=== PATIENT | female | born 1970 | race Hispanic/Latino ===

== ENCOUNTER 2017-10-14 15:01 | Emergency (ER) | payer MEDICAID, SELFPAY ==
[2017-10-14 15:02] VITALS: BP 99/71; PULSE 101; RESP 16; TEMP 36.6; O2SAT 98; BMI 20.8
--- NOTE | 2017-10-14 16:12 | ED.DCSUM_ITS ---
- ER Visit Summary Date of Service: 10/14/17 Chief Complaint: right neck pain History of Present Illness: The patient is a 46 F who presents for right-sided neck pain since yesterday. Patient states she was sleeping and woke up with the pain. She denies any injury. It is on the right side of her neck and is gradually radiated down to the shoulder and pain in the back of her arm. She tried heat but did not take any osrj-onh-nmiknhr medications. She had similar symptoms as a child. She denies any fever, neck stiffness, or any other complaints. No weakness or paresthesias in the arms or legs. Physical Examination: Patient is awake and alert, well-nourished and well-developed sitting in bed, nontoxic appearing. Afebrile and hemodynamically stable. Examination of the neck shows full active range of motion. Pain with rotation of the neck to the right. Tenderness to palpation of the right paraspinal musculature along the trapezius. Also pain medial to the right mid scapula. Full active range of motion of the right upper extremity. Strength is 5/5 in all muscle groups of the right upper extremity. Sensation intact all dermatomes. Negative Spurling test. Test Results: [] Emergency Department Course and Treatment: Patient presents with a trapezius strain, likely that occurred due to a sleeping position. Patient is not having any radicular symptoms other than mild referred pain to the triceps region. She has no deficits in the right upper extremity. Patient was given naproxen for pain. She was given a prescription for the same. She is to use ice today to help with any swelling and inflammation and can switch to heat if it helps in 2 days. Patient agreed with this plan was discharged home. Treatment Plan: [] Disposition: [] Impression: right trapezius strain This note was generated with [employer] dictation software. It may contain incorrect words, spelling, and punctuation that were not noted in review of the chart prior to signing ED Disposition - Plan for ED Patient: Disposition: Home or Assisted Living Chief Complaint: Other, Pain/Inj Instructions: ED Neck Pain No Trauma Prescriptions: Naproxen [Naprosyn] 500 mg PO BID PRN #20 tab Referrals: Bianca Alvarado [Licensed Practical Nurse] - 1 Week if not improving Care Physician,No Primary [NON-STAFF] - Additional Instructions: Use naproxen for pain. Use ice for the next two days to help with irritation to the neck muscles. After two days, you may find some relief with hot packs. If you have any worsening of your condition or any new concerning symptoms, please return immediately to the emergency department for another evaluation.
[2017-10-14] MEDS: Naproxen 500 MG Tablet PO (16:38)
[2017-10-14 16:40] VITALS: BP 122/69; PULSE 75; RESP 16; O2SAT 99
== END 2017-10-14 16:40 | disposition home or self-care (01) ==
PROVIDERS: Emergency Provider Emergency Medicine; Family Provider Student in an Organized Health Care Education/Training Program; PCP Student in an Organized Health Care Education/Training Program
DX: S46.811A Strain of other muscles, fascia and tendons at shoulder and upper arm level, right arm, initial encounter (principal); X58.XXXA Exposure to other specified factors, initial encounter; Y93.84 Activity, sleeping; Y92.9 Unspecified place or not applicable; Y99.9 Unspecified external cause status; Z72.0 Tobacco use
CPT/HCPCS: 99283

== ENCOUNTER → 2019-04-07 | Outpatient (CLI) | payer MEDICAID, SELFPAY ==
--- NOTE | 2019-04-07 | LES_PTH ---
PATIENT: PADMAJA MORRISON LOC: [facility] U#:[id number] AGE/SX: 48/F ROOM: RE04/07/[address]: Dr. Kev Melvin MD : 1970 BED: DIS: 04/07/2019 SPEC #: [id number] RECD: 04/07/19 15:59 STATUS: MOO REReno #: [id number] MANNY: 04/07/19 00:[address]: Kev Melvin DEPT: SURGICAL PATHOLOGY RECD BY: Malik Lizama ENTERED: 04/10/19 09:18 SP TYPE: Lesion OTHR DR: Dr. Hank Alvarado, DO Tissues: Skin of face, NOS Procedures: Surgery Specimen Level III HEADER OPERATION: Excision of right cheek skin lesion PRE-OP DIAGNOSIS: Skin lesion of face TISSUE SUBMITTED: Right cheek lesion MICROSCOPIC DIAGNOSIS Right cheek lesion, excisional biopsy: Epidermal inclusion cyst. SJ:darleen 04/11/19 MICROSCOPIC DESCRIPTION Slides are reviewed. GROSS DESCRIPTION Received in fixative is one container labeled with the patient's name and designated right cheek. The specimen consists of an ellipse of light mejias excised skin with attached yellow-white fibrofatty tissue. The specimen measures 1.5 x 0.5 cm and a depth of excision measuring 0.7 cm. The specimen is inked and serially sectioned to reveal a 1 cm cyst containing cheesy white material. The specimen is sectioned and totally submitted in one cassette. / AM:darleen 04/10/19 TC:5 CPT: 77120
[2019-04-07 13:02] VITALS: BMI 20.8
== END | disposition home or self-care (01) ==
LOC: LABSPEC 16:12
PROVIDERS: PCP Student in an Organized Health Care Education/Training Program; Referring Provider Surgery; Visit Provider Surgery
DX: L98.9 Disorder of the skin and subcutaneous tissue, unspecified (principal)
CPT/HCPCS: 88304; 88305

== ENCOUNTER → 2019-05-11 08:43 | Outpatient (CLI) | payer MEDICAID, SELFPAY ==
[2019-04-07 13:02] VITALS: BMI 20.8
--- NOTE | 2019-05-11 08:45 | US_ITS ---
STUDY: SUPERFICIAL ULTRASOUND - LEFT BUTTOCK. REASON FOR EXAM: Female, 48 years old. BUTTOCK NODULE LEFT - NODULE RED/PURPLE TECHNIQUE: A superficial ultrasound was performed with real-time and static hoyos-scale imaging. COMPARISON: None. FINDINGS: The palpable abnormality corresponds to a 1.3 cm x 1.5 cm x 0.5 cm subcutaneous hypoechoic solid nodule with mild degree of blood flow. A biopsy is recommended for further evaluation. US/Other Unlisted US Procedure IMPRESSION: 1.3 cm x 1.5 cm x 0.5 sinus subcutaneous hypoechoic nodule with increased flow. A biopsy is recommended. Electronically Signed: Ramesh Callaway, at 9:20 EDT , Service support ,
== END ==
PROVIDERS: PCP Student in an Organized Health Care Education/Training Program; Referring Provider Surgery; Visit Provider Surgery
DX: R22.2 Localized swelling, mass and lump, trunk (principal)
CPT/HCPCS: 76882; 76999

== ENCOUNTER → 2019-05-16 | Outpatient (CLI) | payer MEDICAID, SELFPAY ==
[2019-05-16 14:04] VITALS: BMI 20.8
--- NOTE | 2019-05-16 14:40 | LES_PTH ---
PATIENT: PADMAJA MORRISON LOC: [facility] U#:[id number] AGE/SX: 48/F ROOM: RE05/16/[address]: Dr. Kev Melvin MD : 1970 BED: DIS: 05/16/2019 SPEC #: [id number] RECD: 05/16/19 16:12 STATUS: MOO RUBINA #: [id number] MANNY: 05/16/19 14:[address]: Kev Melvin DEPT: SURGICAL PATHOLOGY RECD BY: Malik Lizama ENTERED: 05/17/19 12:18 SP TYPE: Lesion OTHR DR: Dr. Hank Alvarado, DO Tissues: Skin of buttock, NOS Procedures: Surgery Specimen Level III HEADER OPERATION: Excision left buttock infected sebaceous cyst PRE-OP DIAGNOSIS: Infected sebaceous cyst left buttock TISSUE SUBMITTED: Left buttock MICROSCOPIC DIAGNOSIS Cyst of left buttock, excision: Epidermal inclusion cyst, ruptured and inflamed. See comment. AM:darleen 05/18/19 COMMENT The lesion appears to have been completely excised. Case has been reviewed in consultation with Dr. Antonio who concurs with the above diagnosis. IDC:AUSTIN MICROSCOPIC DESCRIPTION Slides are reviewed. GROSS DESCRIPTION Received in fixative is one container labeled with the patient's name and designated left buttock. The specimen consists of a mejias-white skin ellipse with underlying tissue measuring 2.5 x 1.5 cm and up to 1 cm in thickness. Sections reveal a cyst filled with blood measuring 0.5 cm in greatest dimension. The entire specimen is submitted in four cassettes. Cassette 1 contains the tips of skin ellipse. / AUSTIN:darleen 05/17/19 TC:2 CPT: 07034
== END | disposition home or self-care (01) ==
LOC: LABSPEC 16:27
PROVIDERS: PCP Student in an Organized Health Care Education/Training Program; Referring Provider Surgery; Visit Provider Surgery
DX: L72.0 Epidermal cyst (principal)
CPT/HCPCS: 88304; 88305

== ENCOUNTER 2019-08-10 13:19 | Emergency (ER) | payer MEDICAID, SELFPAY ==
[2019-05-16 14:04] VITALS: BMI 20.8
[2019-08-10 13:20] VITALS: BP 113/82; PULSE 104; RESP 16; TEMP 36.3; O2SAT 97; BMI 19.7
--- NOTE | 2019-08-10 14:12 | ED.DCSUM_ITS ---
- ER Visit Summary Date of Service: 08/10/19 Chief Complaint: Back pain History of Present Illness: The patient is a [address] Alvarado. She reports that just prior to coming emergency department she slipped and fell down 2 stairs. She reports she landed on her buttocks and has pain to her lower b ack. States is a sharp pain Zeta 10 at worst and 5-10 currently. Is worsened by nothing including movement or bending. Is also relieved by nothing, but she has not taken anything for pain. There is no radiation to her legs. No numbness or weakness. No problems with her bowels or her bladder. No groin numbness. Patient denies any other injuries. No blow to the head or loss of consciousness . She is not on anticoagulants. No shoulder, wrist, or hip pain. Physical Examination: Vitals: Stable. Afebrile. General: A&O x 3. NAD. Cardiovascular exam: Regular rate and rhythm, no murmur, rub or gallop. Respiratory exam: Clear to auscultation bilaterally. No wheezes or stridor. Abdominal exam: Soft, nontender, nondistended, normal bowel sounds. No peritoneal signs. Back: Diffuse moderate tenderness to palpation over the lumbar spine and the paraspinous musculature in the lumbar region. No point tenderness. Negative straight leg bilaterally. 5/5 DF, PF, EHL bilaterally. Normal sensation to light touch throughout. Extremity: No clubbing, cyanosis, or edema. Test Results: Patient refused x-rays. Emergency Department Course and Treatment: Patient was treated with naproxen. She is resting comfortably. Treatment Plan: Patient will be discharged with naproxen. Instructed to follow- up her primary care physician 1 week if not improving. Return to the emergency department for any worsening symptoms. Disposition: To home in improved and stable condition. Impression: 1. Fall. 2. Low back pain, acute. This note was generated with [employer] dictation software. It may contain incorrect words, spelling, and punctuation that were not noted in review of the chart prior to signing ED Disposition - Plan for ED Patient: Instructions: ED Back Pain Acute or Chronic Prescriptions: Naproxen [Naprosyn] 500 mg PO BID #14 tab Prescription Printed Referrals: Hank Alvarado DO [Primary Care Provider] - 1 Week if not improving
[2019-08-10] MEDS: Naproxen 250 MG Tablet 500 MG PO (14:28)
== END 2019-08-10 14:58 | disposition home or self-care (01) ==
LOC: ED 14:46
PROVIDERS: Emergency Provider Emergency Medicine; PCP Student in an Organized Health Care Education/Training Program
DX: M54.5 Low back pain (principal); W10.9XXA Fall (on) (from) unspecified stairs and steps, initial encounter; Z72.0 Tobacco use
CPT/HCPCS: 99281; 99282

== ENCOUNTER 2020-03-03 09:58 | Emergency (ER) | payer MEDICAID, SELFPAY ==
[2020-03-03 09:59] VITALS: BP 120/65; PULSE 91; RESP 16; TEMP 35.3; O2SAT 97; BMI 20.2
[2020-03-03 10:01] VITALS: BP 120/65; PULSE 91; RESP 16; TEMP 35.3; O2SAT 97
--- NOTE | 2020-03-03 10:18 | RAD_ITS ---
STUDY: X-RAY CHEST REASON FOR EXAM: Female, 49 years old. COUGH, GENERAL ILLNESS ACUTE ONSET TECHNIQUE: Single AP portable view of the chest. COMPARISON: 04/12/2010 FINDINGS: Some bilateral apical scarring. There is no demonstrated pleural abnormality. Normal size heart. Normal mediastinum and spring. Normal visualized pulmonary arteries. Normal visualized aortic arch and descending thoracic aorta. Normal visualized thoracic spine. Normal visualized ribs, clavicles, and shoulders. There is no demonstrated abnormality of the visualized soft tissue structures of the upper abdomen. RAD/Chest 1 View (Portable) IMPRESSION: No active disease. Electronically Signed: Jorge Palafox MD at 11:17 EST Tel , Service support ,
--- NOTE | 2020-03-03 10:19 | ED.DCSUM_ITS ---
- ER Visit Summary Date of Service: 03/03/20 Chief Complaint: Headache and body aches History of Present Illness: The patient is a 49 F who presents with headache and body aches that began today. Patient states her headache is over the frontal area. Patient describes it as a pressure. Patient has been taking ibuprofen and Tylenol with no improvement. Patient admits to arthralgias and has a history of rheumatoid arthritis. Patient states she has been having some swelling in her hands and elbows. Patient also admits to some nausea, vomiting, and diarrhea. Patient admits to chills but denies any fevers. Physical Examination: Vital signs are stable. Patient is afebrile. Patient is in no acute distress. Oral mucosa is pink and moist. Neck is supple. Trachea is midline. There is no JVD noted. Heart was regular rate and rhythm. Lungs are clear and equal bilaterally. Abdomen is soft. Bowel sounds are normal. There is no tenderness. There is no rebound or guarding noted. Skin is warm dry. Cranial nerves II through XII are intact. There are no focal motor or sensory deficits noted. Extremities are intact. There is no calf tenderness or edema. Test Results: Portable 1 view chest x-ray was obtained. On my interpretation, lung whitman are clear. There is normal cardiac silhouette. Bony thorax is normal. There is no acute process noted. Radiologist also interpreted the x- ray and agrees. CBC was essentially within normal limits. Comprehensive metabolic profile was normal. COVID-19 rapid antigen was negative. Influenza swab was negative. Emergency Department Course and Treatment: Patient was given a dose of Tylenol here. Patient was instructed to drink plenty of fluids. Patient was instructed to continue Tylenol and ibuprofen as needed for any fevers. Patient was instructed to follow-up with her primary care physician in 5 to 7 days. Patient understood and was agreeable with the plan. All questions were answered. Disposition: Discharge home Impression: 1. Viral syndrome This note was generated with [employer] dictation software. It may contain incorrect words, spelling, and punctuation that were not noted in review of the chart prior to signing ED Disposition - Plan for ED Patient: Disposition: Home or Assisted Living Diagnosis: Viral syndrome Instructions: ED Viral Syndrome (Adult) Referrals: Hank Alvarado, [Primary Care Provider] - 5-7 Days
[2020-03-03 10:45] LABS: Absolute Lymphocyte Count 1.76 X10^3/uL (0.83-4.51); Absolute Neutrophil Count 3.4 X10^3/uL (2.0-7.7); Basophil# 0.01 X10^3/uL; Basophil% 0.2 % (0-1); Eosinophil# 0.02 X10^3/uL; Eosinophils% 0.4 % (0-5); Hematocrit 36.6 % (37-47); Hemoglobin 11.5 g/dL (12.0-15.0); Lymphocyte # 1.76 X10^3/ul (4.0); Lymphocyte % 31.5 % (19-41); Mean Corp Hgb Conc 31.4 g/dL (32-36); Mean Corpuscular Hgb 30.7 pg (27.0-32.0); Mean Corpuscular Volume 97.6 fL (81-99); Mean Platelet Vol. 9.1 fl (6.2-12.0); Monocyte# 0.39 X10^3/uL; NRBC Flagged by Analyzer 0 % (0-5); Neutrophil # 3.39 X10^3/uL (2.7-7.7); Neutrophil % 60.7 % (47-70); Platelet Count 327 K/mm3 (150-450); RBC Distribution Width CV 13.5 % (11.6-14.6); RBC Distribution Width SD 48.6 fl (35.1-43.9); Red Blood Count 3.75 M/mm3 (4.2-5.4); White Blood Count 5.6 K/mm3 (4.4-11.0)
[2020-03-03 11:05] LABS: ALB/GLOB Ratio 1.2 RATIO (0.9-2.4); AST(SGOT) 12 U/L (15-37); Alanine Aminotransfer ALT/SGPT 25 U/L (13-56); Albumin, Serum 3.8 g/dL (3.2-5.0); Alkaline Phosphatase 89 U/L (45-117); Anion Gap 3 (5-15); BUN 13 mg/dL (7-18); BUN/Creat Ratio 22.3 RATIO (10-20); Calcium,Total 8.7 mg/dL (8.5-10.1); Chloride 108 mmol/L (98-107); Creatinine, Serum 0.58 mg/dL (0.55-1.02); EST Glomerular Filtration Rate 116 mL/min (>60); Est Glom Filt Rate - Afr Amer 140 mL/min (>60); Estimated Creatinine Clearance 99.82 ml/min; Globulin 3.3 g/dL (2.2-4.2); Glucose 94 mg/dL (74-106); Potassium 4.2 mmol/L (3.5-5.1); Protein, Total 7.1 g/dL (6.4-8.2); Sodium Level 140 mmol/L (136-145)
[2020-03-03] MEDS: Acetaminophen 500 MG Tablet 1000 MG PO (11:12)
[2020-03-03 11:13] VITALS: BP 113/69; PULSE 82; RESP 18; TEMP 35.3; O2SAT 97
== END 2020-03-03 11:54 | disposition home or self-care (01) ==
PROVIDERS: Emergency Provider Emergency Medicine; PCP Student in an Organized Health Care Education/Training Program
DX: B34.9 Viral infection, unspecified (principal); M06.9 Rheumatoid arthritis, unspecified; Z72.0 Tobacco use
CPT/HCPCS: 71045; 80053; 85025; 87426; 87804; 99285

== ENCOUNTER 2020-03-26 09:06 | Emergency (ER) | payer MEDICAID, SELFPAY ==
[2020-03-26 09:07] VITALS: BP 131/67; PULSE 90; RESP 18; TEMP 36.6; O2SAT 98; BMI 19.3
[2020-03-26 09:09] VITALS: BP 131/67; PULSE 90; RESP 18; TEMP 36.6; O2SAT 98
--- NOTE | 2020-03-26 09:33 | EKG12_ITS ---
Test Reason : Blood Pressure : / mmHG Vent. Rate : 086 BPM Atrial Rate : 086 BPM P-R Int : 134 ms QRS Dur : 074 ms QT Int : 394 ms P-R-T Axes : 100 066 092 degrees QTc Int : 471 ms Somatic/Motion Artifact Possible Sinus rhythm Abnormal ECG Confirmed by ROSALVA LEVINE, DANITA ([id number]), social media editor TERRIE YANEZ ([id number]) on 03/28/2020 10:27:15 AM Referred By: JENNIFER Confirmed By:DANITA BLACKWELL MD
--- NOTE | 2020-03-26 09:35 | ED.VISSUMM ---
- ER Visit Summary Date of Service: 03/26/20 Chief Complaint: [Dizziness] History of Present Illness: The patient is a 49 F [presents to the emergency department with complaint of dizziness that started 3 to 4 days ago. Patient states typically happens while she is at work working. She also complains of a sore throat and some left ear pain for the last couple days. She complains of an arthritis flare with some arthralgias but no myalgias. She denies any headaches. She denies fever. She denies cough. Patient does complain of some exertional dyspnea at times. She denies any chest pain. Patient is a smoker. Patient describes more of a lightheaded feeling rather than vertigo. Patient states that sometimes she kind of see stars in her eyes when she is feeling lightheaded and today actually had to hold onto something because she felt like she might fall. No syncopal episodes. She denies recent travel or surgery. Patient does have history of anxiety and depression and states that over the last 2 weeks has had 2 panic attacks. Patient denies any Covid exposures and states that the last time she was tested for Covid was about a month ago and was negative. She does have history of anemia. Patient denies blood in her stool or black tarry stools. She has had no vomiting or diarrhea.] Physical Examination: [HEENT-PERRLA, EOMI. Cranial nerves II through XII grossly intact. TMs clear. Mucous membranes moist. No adenopathy. Cardiovascular-regular rate and rhythm without murmur or ectopy Lungs-clear to auscultation, chest wall stable without crepitus or subcu emphysema Abdomen-normoactive bowel sounds, soft, nontender, no rebound or rigidity, no peritoneal signs. Neuro hqbw-kkhypr-vhpe and heel alfaro testing within normal limits, negative Romberg, negative pronator drift, fundi benign. Hallpike maneuver performed and there was no evidence of nystagmus and could not reproduce her dizziness. Extremities-intact ?4, normal range of motion, normal pulses, atraumatic] Test Results: [EKG obtained on arrival shows sinus rhythm with a ventricular rate of 86 bpm with some PACs. EKG had a poor baseline however. CBC with differential showing a 5.9, hemoglobin 11, hematocrit 35, placed 320. Chemistries unremarkable. Urinalysis normal. Troponin less than 0.015. D-dimer was normal at 0.29. COVID-19 testing rapid antigen test was negative. Chest x-ray showed some hyperinflation otherwise nothing acute. Orthostatic vital signs were obtained and were negative regarding heart rate or blood pressure but patient did feel somewhat lightheaded with standing.] Emergency Department Course and Treatment: [IV line established on arrival. Patient placed on quality assurance monitor chassis.] Patient received a liter normal same fluid bolus. Treatment Plan: [Patient will be advised to take the rest of the day off and drink lots of fluids and stay hydrated. Patient will be given a prescription for Antivert in case this is somewhat atypical vertigo. I do not feel any brain imaging is indicated as she has had no trauma recent illness or headache.] Disposition: [Discharged home in stable condition] Impression: [Dizziness-etiology uncertain] This note was generated with [employer] dictation software. It may contain incorrect words, spelling, and punctuation that were not noted in review of the chart prior to signing ED Disposition - Plan for ED Patient: Referrals: Hank Alvarado DO [Primary Care Provider] -
--- NOTE | 2020-03-26 09:43 | NURSING ---
NO OLD EKGS
[2020-03-26 09:58] LABS: Absolute Lymphocyte Count 1.52 X10^3/uL (0.83-4.51); Absolute Neutrophil Count 3.9 X10^3/uL (2.0-7.7); Basophil# 0.01 X10^3/uL; Basophil% 0.2 % (0-1); Eosinophil# 0.06 X10^3/uL; Hematocrit 34.9 % (37-47); Hemoglobin 11.3 g/dL (12.0-15.0); Lymphocyte # 1.52 X10^3/ul (4.0); Mean Corp Hgb Conc 32.4 g/dL (32-36); Mean Corpuscular Hgb 31.6 pg (27.0-32.0); Mean Corpuscular Volume 97.5 fL (81-99); Mean Platelet Vol. 9.1 fl (6.2-12.0); Monocyte# 0.39 X10^3/uL; Monocyte% 6.7 % (0-10); NRBC Flagged by Analyzer 0 % (0-5); Neutrophil # 3.85 X10^3/uL (2.7-7.7); Neutrophil % 65.8 % (47-70); Platelet Count 320 K/mm3 (150-450); RBC Distribution Width CV 13.5 % (11.6-14.6); RBC Distribution Width SD 48.7 fl (35.1-43.9); Red Blood Count 3.58 M/mm3 (4.2-5.4); White Blood Count 5.9 K/mm3 (4.4-11.0)
[2020-03-26 10:14] LABS: D-Dimer Quantitative (DVT/PE) 0.29 FEU/ug/m (0.27-0.49)
[2020-03-26 10:15] LABS: Anion Gap 5 (5-15); BUN 12 mg/dL (7-18); BUN/Creat Ratio 24.1 RATIO (10-20); Calcium,Total 9.3 mg/dL (8.5-10.1); Chloride 107 mmol/L (98-107); EST Glomerular Filtration Rate 139 mL/min (>60); Est Glom Filt Rate - Afr Amer 168 mL/min (>60); Estimated Creatinine Clearance 117.24 ml/min; Glucose 96 mg/dL (74-106); Potassium 4.1 mmol/L (3.5-5.1); Sodium Level 141 mmol/L (136-145)
--- NOTE | 2020-03-26 10:22 | RAD_ITS ---
STUDY: X-RAY CHEST REASON FOR EXAM: Female, 49 years old. Pt with dizziness,, sob, fatigue. States has been dizzy for several days now TECHNIQUE: Single AP portable view of the chest. COMPARISON: Comparison is made with prior study dated 03/03/2020. FINDINGS: Hyperinflation. Stable right apical scarring. There is no demonstrated pleural abnormality. Normal size heart. Normal mediastinum and spring. Normal visualized pulmonary arteries. Normal visualized aortic arch and descending thoracic aorta. Normal visualized thoracic spine. Normal visualized ribs, clavicles, and shoulders. There is no demonstrated abnormality of the visualized soft tissue structures of the upper abdomen. RAD/Chest 1 View (Portable) IMPRESSION: Hyperinflation. No acute abnormality is seen. Electronically Signed: Ramesh Callaway MD at 10:47 EST , Service support ,
[2020-03-26 10:25] LABS: Bacteria 0 SEEN /hpf (None Seen); Mucous, Urine 0 SEEN /hpf (<or=2+); Red Blood Cells-Urine 0 SEEN /hpf (0-5); Squamous Epithelial Cells - UA 0 SEEN /hpf (5-10)
[2020-03-26 10:32] LABS: Color, Urine Yellow (Yellow); Glucose, Dipstick Normal (Normal); Ketone-Dipstick Negative (Negative); Leukocyte Esterase-Dipstick 25 /ul (Negative); Nitrite-Dipstick Negative (Negative); Occult Blood-Urine Negative /ul (Negative); Protein-Dipstick Negative (Negative); Urine Bilirubin Dipstick Negative (Negative); Urine Clarity Clear (Clear); Urine Urobilinogen Normal (Normal)
[2020-03-26 10:47] LABS: White Blood Cells 0-5 SEEN /hpf (0-5)
[2020-03-26] MEDS: 0.9% Normal Saline 1,000 ML 150 ML IV (10:48)
[2020-03-26 10:55] VITALS: BP 101/65; BP 110/62; BP 94/69; PULSE 86; PULSE 94; PULSE 99; RESP 17; TEMP 36.4; O2SAT 97
[2020-03-26 11:06] VITALS: PULSE 88; RESP 17; O2SAT 97
--- NOTE | 2020-03-26 11:29 | ED.DEP ---
ED Disposition - Plan for ED Patient: Instructions: ED Dizziness, Uncertain Cause Referrals: Hank Alvarado DO [Primary Care Provider] - 3-5 Days
--- NOTE | 2020-03-26 11:30 | ED.DEP ---
ED Disposition - Plan for ED Patient: Instructions: ED Dizziness, Uncertain Cause Prescriptions: Meclizine HCl [Antivert] 25 mg PO 4X/DAY PRN PRN #14 tab PRN Reason: Dizziness Prescription Printed Referrals: Hank Alvarado DO [Primary Care Provider] - 3-5 Days
[2020-03-26 12:01] VITALS: BP 129/74; PULSE 81; RESP 18; O2SAT 99
--- NOTE | 2020-03-26 12:03 | ED.RN ---
THIS NURSE ENTERED THE ROOM WITH D/C INSTRUCTIONS. PT STATES IT'S ABOUT FUCKING TIME. THIS NURSE REVIEWED D/C INSTRUCTIONS WITH THE PT. PT SHOOK HER HEAD ABOUT INSTRUCTIONS. IV D/C. IV CATHETER INTACT. PT TOLERATED WELL. PT DENIES FURTHER NEEDS OR QUESTIONS AT THIS TIME
== END 2020-03-26 12:08 | disposition home or self-care (01) ==
PROVIDERS: Emergency Provider Emergency Medicine; PCP Student in an Organized Health Care Education/Training Program
DX: R42 Dizziness and giddiness (principal); F17.200 Nicotine dependence, unspecified, uncomplicated
CPT/HCPCS: 71045; 80048; 81001; 84484; 85025; 85379; 87426; 93005; 96360; 96361; 99285; J7030; A4216

== ENCOUNTER 2020-07-09 15:52 | Emergency (ER) | payer MEDICAID, SELFPAY ==
[2020-07-09 15:53] VITALS: BP 124/67; PULSE 97; RESP 16; TEMP 36.3; O2SAT 96; BMI 20.9
--- NOTE | 2020-07-09 16:07 | EDS_ITS ---
HPI History of Present Illness Chief Complaint: Cold Sx Informant: patient Narrative Narrative: 49-year-old female presents to the emergency department out of concern that she has Covid. She states that her body is aching. She states that her granddaughter whom she took out for ice cream and was with her the past 2 days tested positive. She states that the granddaughter is symptomatic. She denies any fever cough shortness of breath runny nose sore throat diarrhea headache or chills. PFSH PFSH Medical History (Updated 07/09/20 @ 16:[address] Vignesh Hamm DO) Anxiety Depression Infected sebaceous cyst of skin Skin lesion of face Allergy/AdvReac Type Severity Reaction Status Date / Time No Known Allergies Allergy Verified 07/09/20 15:53 Family History Mother Lung cancer Liver cancer Surgical History History of surgical removal of skin lesion Hx of hernia repair Hx of tubal ligation Social History (Updated 07/09/20 @ 16:[address] Vignesh Hamm DO) Smoking Status: Current every day smoker tobacco type: cigarettes substance use type: does not use ROS ROS ED Constitutional Constitutional ED: Denies chills or weight loss Eyes Eyes: Denies change in vision or diplopia ENT ENT ED: Denies ear pain, rhinorrhea or sore throat Cardiovascular Cardiovascular: Denies chest pain, orthopnea, palpitations or racing heartbeat Respiratory/Chest Respiratory/Chest: Denies cough, dyspnea or orthopnea Gastrointestinal Gastrointestinal: Denies abdominal pain, diarrhea, nausea or vomiting Genitourinary Genitourinary ED: Denies dysuria, hematuria or urinary frequency Musculoskeletal Musculoskeletal: Reports myalgias; Denies arthralgias Integumentary Denies abscess or rash Neurologic Neurologic: Denies headache(s) or weakness Psychiatric Psychiatric: Denies anxiety, depression, suicidal ideation or suicidal thoughts Endocrine Endocrinology: Denies polydipsia, polyphagia or polyuria Allergic/Immunologic Allergic/Immunologic ED: Denies mouth swelling, tongue swelling or urticaria EXAM Physical Exam Const Vital Signs: 07/09/20 15:53 07/09/20 16:00 Temperature 97.4 F L Temperature Source Temporal Pulse Rate 97 Respiratory Rate 16 Respiratory Effort Normal Respiratory Pattern Normal Blood Pressure 124/67 H Blood Pressure Mean 86 Pulse Ox 96 Oxygen Delivery Method Room Air Positive well nourished and well developed General Appearance ED: well developed HEENT Reports normocephalic, head/scalp atraumatic and moist mucous membranes Eyes PERRL and EOMs intact bilaterally Neck no lymphadenopathy, supple and no JVD Resp normal respiratory effort and clear to auscultation bilaterally Cardio regular rate, regular rhythm and no murmurs GI normal to inspection, nondistended, normoactive bowel sounds and non-tender Palpation: soft Back/Spine no CVA tenderness and normal ROM Extremity normal to inspection General Extremety ED: Negative for edema General Extremity: Negative for edema Neuro oriented x3 and CN's II-XII intact bilaterally Sensorium / Orientation: alert Motor Exam: strength 5/5 throughout Psych mental status grossly normal Mood & Affect: Negative for depressed or tearful Skin no rashes or lesions noted and no wounds MDM MDM MDM Narrative Medical decision making narrative: Patient's Covid test is negative. She was advised that she should still self quarantine as she may still develop symptoms/infection as the exposure was only yesterday.. Tylenol Motrin for pain. Discharge Plan Triage Chief Complaint: Cold Sx ED Provider: Vignesh Hamm Dx/Rx/DC Orders Clinical Impression: Close exposure to COVID-19 virus Instructions: Coronavirus Disease 2019 (COVID-19): Caring for Yourself or Oth ers Primary Care Provider: Hank Alvarado Referrals: Hank Alvarado DO [Primary Care Provider] - As Needed Activity Restrictions/Additional Instructions: As discussed a negative test today does not guarantee that you do not or will not develop to symptoms. You should self isolate and monitor yourself. Disposition Disposition: Home, self care
== END 2020-07-09 17:04 | disposition home or self-care (01) ==
PROVIDERS: Emergency Provider Emergency Medicine; PCP Student in an Organized Health Care Education/Training Program
DX: Z20.822 Contact with and (suspected) exposure to COVID-19 (principal); F17.210 Nicotine dependence, cigarettes, uncomplicated
CPT/HCPCS: 87426; 99282

== ENCOUNTER 2020-07-29 06:19 | Emergency (ER) | payer MEDICAID, SELFPAY ==
[2020-07-29 06:20] VITALS: BP 136/79; PULSE 118; RESP 20; TEMP 36.6; O2SAT 100; BMI 22.4
[2020-07-29 06:24] VITALS: BP 136/79; PULSE 118; RESP 20; TEMP 36.6; O2SAT 100
--- NOTE | 2020-07-29 06:31 | RAD_ITS ---
STUDY: X-RAY CHEST REASON FOR EXAM: Female, 49 years old. cough TECHNIQUE: Single AP portable view of the chest. COMPARISON: 03/26/2020. FINDINGS: There are fibrotic changes in the lung apices, right greater than left, along with mild emphysematous changes. There are no confluent pulmonary infiltrates. There is no demonstrated pleural abnormality. Normal size heart. Normal mediastinum and spirng. Normal visualized aortic arch and descending thoracic aorta. There are no demonstrated acute fractures or destructive bone lesions. There is no demonstrated abnormality of the visualized soft tissue structures of the upper abdomen. RAD/Chest 1 View (Portable) IMPRESSION: Chronic changes in the lung apices. No evidence for acute cardiopulmonary pathology. Electronically Signed: Max Sharma MD at 7:56 EDT , Service support ,
[2020-07-29] MEDS: 0.9% Normal Saline 1,000 ML 1000 ML IV (06:52)
[2020-07-29] MEDS: Morphine 2 MG/ML Syringe IV (06:52)
[2020-07-29] MEDS: Ketorolac 30 MG/ML Syringe IV (06:52)
[2020-07-29 06:53] VITALS: BP 136/79; PULSE 118; RESP 20; TEMP 36.6; O2SAT 100
[2020-07-29 06:56] LABS: Mucous, Urine 0 SEEN /hpf (<or=2+); Red Blood Cells-Urine 0 SEEN /hpf (0-5)
[2020-07-29 07:02] LABS: Absolute Neutrophil Count 7.5 X10^3/uL (2.0-7.7); Basophil# 0.02 X10^3/uL; Basophil% 0.2 % (0-1); Eosinophil# 0.06 X10^3/uL; Eosinophils% 0.6 % (0-5); Hemoglobin 11.9 g/dL (12.0-15.0); Lymphocyte % 11.7 % (19-41); Mean Corp Hgb Conc 32.2 g/dL (32-36); Mean Corpuscular Hgb 30.5 pg (27.0-32.0); Mean Corpuscular Volume 94.9 fL (81-99); Mean Platelet Vol. 9.2 fl (6.2-12.0); Monocyte# 0.69 X10^3/uL; Monocyte% 7.3 % (0-10); NRBC Flagged by Analyzer 0 % (0-5); Neutrophil # 7.49 X10^3/uL (2.7-7.7); Neutrophil % 79.8 % (47-70); Platelet Count 314 K/mm3 (150-450); RBC Distribution Width CV 13.4 % (11.6-14.6); RBC Distribution Width SD 47.1 fl (35.1-43.9); White Blood Count 9.4 K/mm3 (4.4-11.0)
[2020-07-29 07:14] LABS: Anion Gap 5 (5-15); BUN 12 mg/dL (7-18); BUN/Creat Ratio 16.3 RATIO (10-20); Calcium,Total 8.8 mg/dL (8.5-10.1); Chloride 105 mmol/L (98-107); Creatinine, Serum 0.74 mg/dL (0.55-1.02); EST Glomerular Filtration Rate 88 mL/min (>60); Est Glom Filt Rate - Afr Amer 107 mL/min (>60); Estimated Creatinine Clearance 87.46 ml/min; Glucose 114 mg/dL (74-106); Potassium 3.5 mmol/L (3.5-5.1); Sodium Level 138 mmol/L (136-145)
--- NOTE | 2020-07-29 07:51 | EX.ED.DYSGE1 ---
HPI History of Present Illness Chief Complaint: General Illness Detail of Chief Complaint: Body aches, subjective fever, nasal congestion, dysuria Informant: patient Onset/Context/Timing Onset: Days (2 days) Context: Gradual Onset Timing: Waxes and wanes Current Severity: Moderate Maximum Severity: Moderate Narrative Narrative: Patient presents secondary to body aches and subjective fevers for the past 2 days. She is had nasal congestion with cough along with runny nose. Last night she had developed some diarrhea as well. She does have dysuria and frequency. Patient has received the Covid vaccine. [facility] Medical History (Updated 07/29/20 @ 09:[address] Yoly Kerr MD) Anxiety Depression Infected sebaceous cyst of skin Skin lesion of face Home Medications sulfamethoxazole-trimethoprim [Bactrim DS] 1 tab PO BID #6 tab 07/29/20 [Rx Last Taken Unknown] Allergy/AdvReac Type Severity Reaction Status Date / Time No Known Allergies Allergy Verified 07/09/20 15:53 Family History Mother Lung cancer Liver cancer Surgical History History of surgical removal of skin lesion Hx of hernia repair Hx of tubal ligation Social History Smoking Status: Current every day smoker tobacco type: cigarettes substance use type: does not use ROS ROS ED Constitutional Constitutional ED: Reports fever(s) and subjective; Denies chills Eyes Eyes: Denies change in vision ENT ENT ED: Reports rhinorrhea; Denies sore throat Cardiovascular Cardiovascular: Denies chest pain Respiratory/Chest Respiratory/Chest: Reports cough; Denies dyspnea Gastrointestinal Gastrointestinal: Reports diarrhea; Denies abdominal pain, nausea or vomiting Genitourinary Genitourinary ED: Reports dysuria and urinary frequency Musculoskeletal Musculoskeletal: Reports myalgias; Denies back pain Integumentary Denies rash Neurologic Neurologic: Denies headache(s) or weakness Psychiatric Psychiatric: Denies anxiety or depression Endocrine Endocrinology: Denies polydipsia or polyuria Allergic/Immunologic Allergic/Immunologic ED: Denies urticaria EXAM Physical Exam Const Vital Signs: 07/29/20 06:20 07/29/20 06:24 07/29/20 06:53 Temperature 98 F 98 F 98 F Temperature Source Oral Oral Oral Pulse Rate 118 H 118 H 118 H Respiratory Rate 20 H 20 H 20 H Respiratory Effort Normal Blood Pressure 136/79 H 136/79 H 136/79 H Blood Pressure Mean 98 98 98 Pulse Ox 100 100 100 Oxygen Delivery Method Room Air Room Air Room Air Positive well nourished and well developed General Appearance ED: well developed HEENT Reports normocephalic and head/scalp atraumatic Eyes PERRL and EOMs intact bilaterally Neck supple Chest Wall inspection of chest normal and palpation of chest normal Resp normal respiratory effort and clear to auscultation bilaterally Cardio regular rate and regular rhythm GI normal to inspection, nondistended, normoactive bowel sounds Palpation: soft Back/Spine no CVA tenderness Extremity normal to inspection Neuro oriented x3 and no sensory deficits noted Sensorium / Orientation: alert Motor Exam: strength 5/5 throughout Psych mental status grossly normal Skin no rashes or lesions noted MDM MDM MDM Narrative Medical decision making narrative: Covid swab was obtained. Portable chest x-ray, labs, urinalysis are obtained. Patient was given Toradol along with 2 mg of morphine to help with body aches. Lab Data Attestation: I reviewed the patient's lab results. Labs: Laboratory Results - last 24 hr 07/29/20 07/29/20 07/29/20 06:45 06:45 08:55 WBC 9.4 RBC 3.90 L Hgb 11.9 L Hct 37.0 MCV 94.9 MCH 30.5 MCHC 32.2 RDW Std Deviation 47.1 H RDW Coeff of Melisa 13.4 Plt Count 314 MPV 9.2 Immature Gran % (Auto) 0.400 Neut % (Auto) 79.8 H Lymph % (Auto) 11.7 L [place] % (Auto) 7.3 Eos % (Auto) 0.6 Baso % (Auto) 0.2 Absolute Neuts (auto) 7.5 Absolute Lymphs (auto) 1.10 Nucleated RBC % 0 Sodium 138 Potassium 3.5 Chloride 105 Carbon Dioxide 28.0 Anion Gap 5 BUN 12 Creatinine 0.74 Estim Creat Clear Calc 87.46 Est GFR (MDRD) Af Amer 107 Est GFR (MDRD) Non-Af 88 BUN/Creatinine Ratio 16.3 Glucose 114 H Calcium 8.8 Urine Color Yellow Urine Clarity Clear Urine pH 6.0 Ur Specific [place] 1.010 Urine Protein Negative Urine Glucose (UA) Normal Urine Ketones Negative Urine Occult Blood Negative Urine Nitrite Negative Urine Bilirubin Negative Urine Urobilinogen Normal Ur Leukocyte Esterase 500 H Urine RBC 0 SEEN Urine WBC 25-50 SEEN Ur Squamous Epith Cells 0-5 SEEN Urine Bacteria 1+ Urine Mucus 0 SEEN Radiography Chest X-Ray - ED: 1 View, Read by ED Physician, Normal, Heart, Lungs and Mediastinum Diagnostic Testing: Radiology Impression Chest X-Ray 07/29/20 06:31 IMPRESSION: Chronic changes in the lung apices. No evidence for acute cardiopulmonary pathology. Electronically Signed: Max Sharma MD at 7:56 EDT , Service support , Treatment and Re-Evaluation Comments:: On repeat evaluation the patient is sleeping comfortably. She easily awakens. Test results discussed with her. She has evidence of a UTI in addition to a viral upper respiratory infection. She will be covered with 3 days of Bactrim. She will be given a work note for today. Discharge Plan Triage Chief Complaint: General Illness ED Provider: Yoly Kerr Dx/Rx/DC Orders Clinical Impression: Viral URI, UTI (urinary tract infection) Instructions: ED Bladder Infection, Female (Adult), ED URI, Viral, No Abx (Adult) Prescriptions: New sulfamethoxazole-trimethoprim [Bactrim DS] 800-160 mg tablet 1 tab PO BID Qty: 6 RF: 0 Stand Alone Forms: ED Work / School Excuse Primary Care Provider: Hank Alvarado Referrals: Hank Alvarado DO [Primary Care Provider] - 1 Week Disposition Disposition: Home, self care
[2020-07-29 09:03] LABS: Color, Urine Yellow (Yellow); Glucose, Dipstick Normal (Normal); Ketone-Dipstick Negative (Negative); Leukocyte Esterase-Dipstick 500 /ul (Negative); Nitrite-Dipstick Negative (Negative); Occult Blood-Urine Negative /ul (Negative); Protein-Dipstick Negative (Negative); Urine Bilirubin Dipstick Negative (Negative); Urine Clarity Clear (Clear); Urine Urobilinogen Normal (Normal)
[2020-07-29 09:10] LABS: Bacteria 1+ /hpf (None Seen); Squamous Epithelial Cells - UA 0-5 SEEN /hpf (5-10); White Blood Cells 25-50 SEEN /hpf (0-5)
[2020-07-29] MEDS: Smz/Tmp Ds Tablet 1 TABLET PO (09:31)
[2020-07-29 09:33] VITALS: BP 106/68; PULSE 89; RESP 18; O2SAT 97
== END 2020-07-29 09:36 | disposition home or self-care (01) ==
PROVIDERS: Emergency Provider Emergency Medicine; PCP Student in an Organized Health Care Education/Training Program
DX: J06.9 Acute upper respiratory infection, unspecified (principal); N39.0 Urinary tract infection, site not specified; Z20.822 Contact with and (suspected) exposure to COVID-19; R19.7 Diarrhea, unspecified; F17.210 Nicotine dependence, cigarettes, uncomplicated
CPT/HCPCS: 71045; 80048; 81001; 85025; 87426; 96361; 96374; 96375; 99284; J7030

== ENCOUNTER 2020-12-12 09:24 | Emergency (ER) | payer MEDICAID, SELFPAY ==
[2020-12-12 09:25] VITALS: BP 128/66; PULSE 88; RESP 24; TEMP 36; O2SAT 96; BMI 19.8
[2020-12-12 10:14] LABS: Absolute Lymphocyte Count 1.43 X10^3/uL (0.83-4.51); Absolute Neutrophil Count 3.3 X10^3/uL (2.0-7.7); Basophil# 0.01 X10^3/uL; Basophil% 0.2 % (0-1); Eosinophil# 0.08 X10^3/uL; Eosinophils% 1.5 % (0-5); Hematocrit 36.5 % (37-47); Lymphocyte # 1.43 X10^3/ul (0.83-4.51); Lymphocyte % 27.2 % (19-41); Mean Corp Hgb Conc 32.9 g/dL (32-36); Mean Corpuscular Hgb 30.8 pg (27.0-32.0); Mean Corpuscular Volume 93.8 fL (81-99); Mean Platelet Vol. 9.2 fl (6.2-12.0); Monocyte# 0.44 X10^3/uL; Monocyte% 8.4 % (0-10); NRBC Flagged by Analyzer 0 % (0-5); Neutrophil # 3.28 X10^3/uL (2.7-7.7); Neutrophil % 62.5 % (47-70); Platelet Count 313 K/mm3 (150-450); RBC Distribution Width CV 13.3 % (11.6-14.6); RBC Distribution Width SD 45.4 fl (35.1-43.9); Red Blood Count 3.89 M/mm3 (4.2-5.4); White Blood Count 5.3 K/mm3 (4.4-11.0)
[2020-12-12 10:25] VITALS: BP 107/66; PULSE 98; RESP 20; TEMP 36; O2SAT 96; O2SAT 98
[2020-12-12 10:31] LABS: ALB/GLOB Ratio 0.9 RATIO (0.9-2.4); AST(SGOT) 12 U/L (15-37); Alanine Aminotransfer ALT/SGPT 18 U/L (13-56); Albumin, Serum 3.7 g/dL (3.2-5.0); Alkaline Phosphatase 96 U/L (45-117); Anion Gap 8 (5-15); BUN 13 mg/dL (7-18); BUN/Creat Ratio 21.3 RATIO (10-20); Calcium,Total 8.9 mg/dL (8.5-10.1); Chloride 106 mmol/L (98-107); Creatinine, Serum 0.61 mg/dL (0.55-1.02); EST Glomerular Filtration Rate 109 mL/min (>60); Est Glom Filt Rate - Afr Amer 132 mL/min (>60); Estimated Creatinine Clearance 99.22 ml/min; Glucose 105 mg/dL (74-106); Potassium 3.9 mmol/L (3.5-5.1); Protein, Total 7.7 g/dL (6.4-8.2); Sodium Level 141 mmol/L (136-145)
--- NOTE | 2020-12-12 10:35 | RAD_ITS ---
STUDY: X-RAY CHEST REASON FOR EXAM: Female, 49 years old. Left-sided chest pain and shortness of breath. TECHNIQUE: Single AP portable view of the chest. COMPARISON: Comparison is made with prior study of 07/29/2020. FINDINGS: Stable fibrotic changes in the apices bilaterally more prominent on the right side. Hyperinflation. There is no demonstrated pleural abnormality. Normal size heart. Normal mediastinum and spring. Normal visualized pulmonary arteries. Normal visualized aortic arch and descending thoracic aorta. Normal visualized thoracic spine. Normal visualized ribs, clavicles, and shoulders. There is no demonstrated abnormality of the visualized soft tissue structures of the upper abdomen. RAD/Chest 1 View (Portable) IMPRESSION: Hyperinflation. Stable scarring at the lung apices more prominent at the right lung apex. Electronically Signed: Ramesh Callaway MD at 11:10 EDT , Service support ,
[2020-12-12 12:16] VITALS: PULSE 85; RESP 16
--- NOTE | 2020-12-12 12:52 | ED.VIS.DYS ---
HPI History of Present Illness Chief Complaint: Shortness of Breath Informant: patient Onset/Context/Timing Onset: Yesterday Context: gradual Timing: Continuous Quality: Positive for - (Sharp) Worsened by: other (Deep breathing) Relieved by: Rest Associated Symptoms rhinorrhea; Negative for cough, ear pain, fever, sore throat, chills, sweats, clear sputum, white sputum, yellow sputum or green sputum Chest Pain: Positive for Aching Narrative Narrative: Patient presents with shortness of breath and left-sided chest pain that began yesterday. Patient states he sneezed yesterday and felt some pain in her left chest. Patient describes the pain as aching. Patient states the pain is worse with deep breathing. Patient denies any cough. Patient denies any rhinorrhea. Patient denies any fevers or chills. Patient states her pain feels similar to prior episodes of pneumonia. Patient denies any COVID-19 exposures. [facility] Medical History (Updated 12/12/20 @ 12:[address] Riley Gann DO) Anxiety Depression Infected sebaceous cyst of skin Skin lesion of face Home Medications NK 12/12/20 [History Last Taken Unknown] Allergy/AdvReac Type Severity Reaction Status Date / Time No Known Allergies Allergy Verified 12/12/20 09:27 Family History Mother Lung cancer Liver cancer Surgical History History of surgical removal of skin lesion Hx of hernia repair Hx of tubal ligation Social History Smoking Status: Current every day smoker tobacco type: cigarettes substance use type: does not use ROS ROS ED Constitutional Constitutional ED: Denies chills or fever(s) Eyes Eyes: Denies blurry vision or change in vision ENT ENT ED: Reports rhinorrhea; Denies sore throat Cardiovascular Cardiovascular: Reports chest pain; Denies palpitations Respiratory/Chest Respiratory/Chest: Reports dyspnea; Denies cough Gastrointestinal Gastrointestinal: Denies nausea or vomiting Genitourinary Genitourinary ED: Denies dysuria or hematuria Musculoskeletal Musculoskeletal: Reports back pain; Denies neck pain Integumentary Denies abscess or rash Neurologic Neurologic: Denies headache(s) or weakness Allergic/Immunologic Allergic/Immunologic ED: Denies mouth swelling or urticaria EXAM Physical Exam Const Vital Signs: 12/12/20 09:25 12/12/20 10:25 12/12/20 12:16 Temperature 96.8 F L 96.8 F L Temperature Source Temporal Temporal Pulse Rate 88 98 85 Respiratory Rate 24 H 20 H 16 Respiratory Effort Normal Non-Labored Respiratory Depth Normal Respiratory Pattern Normal Blood Pressure 128/66 H 107/66 Blood Pressure Mean 86 79 Pulse Ox 96 96 Oxygen Delivery Method Room Air Room Air Positive well nourished and well developed General Appearance ED: well developed HEENT Reports moist mucous membranes Neck supple and no JVD Resp normal respiratory effort and clear to auscultation bilaterally Cardio regular rate, regular rhythm and no murmurs GI normal to inspection, nondistended, normoactive bowel sounds and non-tender Palpation: soft Extremity normal to inspection General Extremety ED: Negative for edema or tenderness General Extremity: Negative for edema Neuro oriented x3, CN's II-XII intact bilaterally and no sensory deficits noted Sensorium / Orientation: alert Motor Exam: strength 5/5 throughout Psych mental status grossly normal Skin no rashes or lesions noted MDM MDM MDM Narrative Medical decision making narrative: Portable 1 view chest x-ray was obtained. On my interpretation, lung [place] are clear. There is normal cardiac silhouette. Bony thorax is normal. There is no acute process noted. Radiologist also interpreted the x-ray and agrees. CBC and comprehensive metabolic profile were obtained and were within normal limits. Patient was feeling better on reevaluation. Patient was advised of her findings. Patient was instructed to take Tylenol as needed for pain. Patient was instructed to follow-up with her primary care physician in 5 to 7 days. Patient understood and was agreeable with the plan. All questions were answered. Lab Data Labs: Laboratory Results - last 24 hr 12/12/20 12/12/20 10:00 10:00 WBC 5.3 RBC 3.89 L Hgb 12.0 Hct 36.5 L MCV 93.8 MCH 30.8 MCHC 32.9 RDW Std Deviation 45.4 H RDW Coeff of Melisa 13.3 Plt Count 313 MPV 9.2 Immature Gran % (Auto) 0.200 Neut % (Auto) 62.5 Lymph % (Auto) 27.2 [place] % (Auto) 8.4 Eos % (Auto) 1.5 Baso % (Auto) 0.2 Absolute Neuts (auto) 3.3 Absolute Lymphs (auto) 1.43 Nucleated RBC % 0 Sodium 141 Potassium 3.9 Chloride 106 Carbon Dioxide 27.0 Anion Gap 8 BUN 13 Creatinine 0.61 Estim Creat Clear Calc 99.22 Est GFR (MDRD) Af Amer 132 Est GFR (MDRD) Non-Af 109 BUN/Creatinine Ratio 21.3 H Glucose 105 Calcium 8.9 Total Bilirubin 0.20 AST 12 L ALT 18 Alkaline Phosphatase 96 Total Protein 7.7 Albumin 3.7 Globulin 4.0 Albumin/Globulin Ratio 0.9 Radiography Diagnostic Testing: Clinical Impression(s) from Imaging Studies Chest X-Ray 12/12/20 10:35 IMPRESSION: Hyperinflation. Stable scarring at the lung apices more prominent at the right lung apex. Electronically Signed: Ramesh Callaway MD at 11:10 EDT , Service support , Discharge Plan Triage Chief Complaint: Shortness of Breath ED Provider: Riley Gann Dx/Rx/DC Orders Clinical Impression: Chest wall pain Instructions: ED Chest Wall Pain, Costochondritis Prescriptions: No Action NK RF: 0 Primary Care Provider: Hank Alvarado Referrals: Hank Alvarado DO [Primary Care Provider] - 5-7 Days Disposition Disposition: Home, Self Care
[2020-12-12 13:01] VITALS: BP 110/69; PULSE 73; RESP 16; O2SAT 98
== END 2020-12-12 13:02 | disposition home or self-care (01) ==
PROVIDERS: Emergency Provider Emergency Medicine; PCP Student in an Organized Health Care Education/Training Program
DX: R07.89 Other chest pain (principal); R06.02 Shortness of breath; F17.210 Nicotine dependence, cigarettes, uncomplicated
CPT/HCPCS: 71045; 80053; 85025; 87426; 99283; A4216

== ENCOUNTER 2020-12-17 06:57 | Emergency (ER) | payer MEDICAID, SELFPAY ==
[2020-12-17 06:58] VITALS: BP 118/73; PULSE 89; RESP 16; TEMP 36.4; O2SAT 98; BMI 19.8
--- NOTE | 2020-12-17 07:15 | EDS_ITS ---
HPI History of Present Illness Chief Complaint: Back Detail of Chief Complaint: Back pain that initially started yesterday Informant: patient Narrative Narrative: Patient presents to the emergency department complaint of back pain that started yesterday. Patient states initially she woke up yesterday morning and had some discomfort in her upper back and also noticed a little bit of a lump in her lower back with sharp stabbing pain in her lower back. The pain did not radiate down her legs. She denies change in bowel or bladder function. She denies weakness in extremities. Patient states she woke up this morning and did not have any further upper back pain but now continues to have the lower back pain. She denies any trauma. She denies recent illness. Patient states that she has been diagnosed with arthritis. Patient denies urinary symptoms. She denies fevers. Prior similar symptoms: No PFSH PFSH Medical History (Updated 12/17/20 @ 09:[address] Vasu Hudson DO) Anxiety Depression Infected sebaceous cyst of skin Skin lesion of face Home Medications hydrocodone-acetaminophen 1 tab PO Q4H PRN PRN 2 Days #10 tablet 12/17/20 [Rx Last Taken Unknown] Allergy/AdvReac Type Severity Reaction Status Date / Time No Known Allergies Allergy Verified 12/17/20 06:59 Family History Mother Lung cancer Liver cancer Surgical History History of surgical removal of skin lesion Hx of hernia repair Hx of tubal ligation Social History Smoking Status: Current every day smoker tobacco type: cigarettes substance use type: does not use ROS ROS ED Constitutional Constitutional ED: Reports systems reviewed and no addt'l complaints, except as documented; Denies body ache(s), change in weight or chills Eyes Eyes: Denies acute decrease in peripheral vision, change in vision, double vision or loss of vision ENT ENT ED: Reports none; Denies ear pain, lip swelling, loss taste/smell, neck pain, otalgia or sore throat Cardiovascular Cardiovascular: Reports none; Denies abdominal pain, chest pain with activity, leg edema, lightheadedness, palpitations, rapid heart rate or syncope Respiratory/Chest Respiratory/Chest: Reports none; Denies change in mental status, dry cough, dyspnea, hemoptysis, shortness of breath at rest or shortness of breath with exertion Gastrointestinal Gastrointestinal: Reports none; Denies abdominal pain, change in stool character, diarrhea, hematemesis, hematochezia, melena, rectal bleeding or vomiting Genitourinary Genitourinary ED: Reports none; Denies abdominal discomfort, anuria, dysuria, genital pain or polyuria Musculoskeletal Musculoskeletal: Reports none and back pain; Denies arthralgias, difficulty w alking, extremity pain, muscle weakness or myalgias Integumentary Reports none; Denies abscess or rash Neurologic Neurologic: Reports none; Denies abnormal gait, confusion, focal weakness, frequent falls, headache(s), loss of vision, numbness, paresthesias, radicular pain, vertigo or weakness Psychiatric Psychiatric: Reports systems reviewed and no addt'l complaints, except as documented and none; Denies behavioral changes, confusion, difficulty concentrating, hallucinations, suicidal ideation, tactile hallucinations or visual hallucinations Endocrine Endocrinology: Denies none, cold intolerance, excessive sweating, fatigue or heat intolerance Hematologic/Lymphatic Hematologic/Lymphatic: Reports none; Denies anemia, easy bleeding or easy bruising Allergic/Immunologic Allergic/Immunologic ED: Denies as per HPI, none, lip swelling, mouth swelling, throat swelling, tongue swelling or hives EXAM Physical Exam Const Vital Signs: 12/17/20 06:58 Temperature 97.5 F L Temperature Source Temporal Pulse Rate 89 Respiratory Rate 16 Blood Pressure 118/73 Blood Pressure Mean 88 Pulse Ox 98 Oxygen Delivery Method Room Air Positive well nourished and well developed General Appearance ED: well developed and NAD HEENT Reports TM's clear and moist mucous membranes normocephalic and atraumatic; Negative for trauma or tenderness Tympanic Membrane ED: Yes TM's clear Eyes PERRL and EOMs intact bilaterally General Eye ED: Negative for pale conjunctiva or scleral icterus Neck no lymphadenopathy, supple and no JVD General: Negative for tenderness Chest Wall inspection of chest normal and palpation of chest normal Chest: Negative for tenderness Resp normal respiratory effort and clear to auscultation bilaterally Effort and Inspection: Negative for respiratory distress or pain with movement Auscultation: Negative for rhonchi, wheezes or diminished lung sounds Cardio regular rate, regular rhythm, S1 normal heart sound, S2 normal heart sound and no murmurs Peripheral Pulses: pulses 2+ throughout GI normal to inspection, nondistended, normoactive bowel sounds, soft to palpation, non-tender, non-distended and no masses Back/Spine no CVA tenderness Back/Spine Narrative: Evaluation of her back reveals no lesions. There is no erythema or warmth noted. Patient does have point tenderness over the L3 and L4 lumbar spine. Negative straight leg raises. Deep tendon reflexes are plus out of 4 bilaterally at the patella and Achilles. Patient has normal 5 extension. Patient has normal sensation to light touch. Palpation reproduces her pain but movement does not seem to. Lumbar Spine / Lower Back: straight leg raise negative bilaterally Extremity normal to inspection General Extremety ED: Negative for edema General Extremity: Negative for edema Neuro oriented x3, CN's II-XII intact bilaterally, no sensory deficits noted and gait normal Sensorium / Orientation: awake, alert, oriented to person, oriented to place and oriented to time Motor Exam: strength 5/5 throughout and strength abnormal Psych mental status grossly normal Skin no rashes or lesions noted and no wounds MDM MDM MDM Narrative Medical decision making narrative: Patient having atraumatic back pain. She has no radiculopathy signs or symptoms. No red flag symptoms of cauda equina. Patient will be given a prescription for few [place] for pain. She is advised to follow-up with her primary care physician within next 3 to 5 days. She is to return if worsening pain, weakness in extremities, change in bowel or bladder function, or condition should worsen anyway. Radiography Diagnostic Testing: Clinical Impression(s) from Imaging Studies Lumbar Spine X-Ray 12/17/20 07:22 IMPRESSION: Degenerative changes. No acute fracture or spondylolisthesis. at 0748 Reported and signed by: Eddi Sheth MD Electronically Signed: Eddi Sheth MD at 7:47 EDT Tel , Service support , Three-view x-rays of lumbar spine obtained interpreted by myself as degenerative changes with no fractures or lytic lesions noted. Radiology was in agreement. Discharge Plan Triage Chief Complaint: Back ED Provider: Vasu Hudson Dx/Rx/DC Orders Clinical Impression: Back pain Instructions: ED Back Pain (Acute or Chronic) Prescriptions: New hydrocodone-acetaminophen [hydrocodone-acetaminophen] 1 TABLET tablet 1 tab PO Q4H PRN PRN (Reason: Pain) 2 Days Qty: 10 RF: 0 Primary Care Provider: Hank Alvarado Referrals: Hank Alvarado DO [Primary Care Provider] - 3-5 Days Disposition Disposition: Home, Self Care
--- NOTE | 2020-12-17 07:22 | RAD_ITS ---
History: back pain EXAMINATION/TECHNIQUE: XR Spine Lumbar 2 or 3 Views: COMPARISON: None FINDINGS: VERTEBRAE: Preserved vertebral body height. No fracture. No spondylolisthesis. Degenerative changes of the posterior elements. Preservation of the normal lumbar lordosis. DISCS: Degenerative changes are noted. INCLUDED ABDOMEN: Included bowel gas pattern is non-obstructive. RAD/Lumbar Spine 2 or 3 Views IMPRESSION: Degenerative changes. No acute fracture or spondylolisthesis. at 0748 Reported and signed by: Eddi Sheth MD Electronically Signed: Eddi Sheth MD at 7:47 EDT Tel , Service support ,
== END 2020-12-17 09:21 | disposition home or self-care (01) ==
PROVIDERS: Emergency Provider Emergency Medicine; PCP Student in an Organized Health Care Education/Training Program
DX: M54.50 Low back pain, unspecified (principal); F17.210 Nicotine dependence, cigarettes, uncomplicated
CPT/HCPCS: 72100; 99282

== ENCOUNTER 2021-03-02 05:09 | Emergency (ER) | payer MEDICAID, SELFPAY ==
[2021-03-02 05:10] VITALS: BP 118/71; PULSE 112; RESP 18; TEMP 36.8; O2SAT 95; BMI 20.2
--- NOTE | 2021-03-02 05:45 | EX.ED.DYSGE1 ---
HPI History of Present Illness Chief Complaint: General Illness Informant: patient Narrative Narrative: Patient is a 50-year-old female with history of low back pain presenting with COVID-like symptoms. Yesterday morning patient developed chills, throbbing diffuse headache, low back pain, nasal congestion and runny nose. She notes she has had a sick contact at work who she was told had the flu. Patient's been taking [id number] TheraFlu, Tylenol Cold and flu and Tylenol extra strength with no significant relief of her symptoms. She last had medicine at 4 AM. She denies any associated shortness of breath, cough, chest pain, GI or symptoms. She has had her COVID vaccines. No other complaints at this time. [facility] Medical History (Updated 03/02/21 @ 06:[address] Trini Tai DO) Anxiety Depression Infected sebaceous cyst of skin Skin lesion of face Home Medications hydrocodone-acetaminophen 1 tab PO Q4H PRN PRN 2 Days #10 tablet 12/17/20 [Rx Last Taken Unknown] cyclobenzaprine 10 mg PO TID PRN #20 tab 03/02/21 [Rx Last Taken Unknown] ibuprofen 600 mg PO Q6H PRN PRN #20 tab 03/02/21 [Rx Last Taken Unknown] Allergy/AdvReac Type Severity Reaction Status Date / Time No Known Allergies Allergy Verified 12/17/20 06:59 Family History Mother Lung cancer Liver cancer Surgical History History of surgical removal of skin lesion Hx of hernia repair Hx of tubal ligation Social History Smoking Status: Current every day smoker tobacco type: cigarettes substance use type: does not use ROS ROS ED Constitutional Constitutional ED: Reports chills and fever(s) Eyes Eyes: Denies change in vision ENT ENT ED: Reports rhinorrhea and other Details: nasal congestion ; Denies ear pain or sore throat Cardiovascular Cardiovascular: Denies chest pain Respiratory/Chest Respiratory/Chest: Denies cough or dyspnea Gastrointestinal Gastrointestinal: Denies abdominal pain, diarrhea, nausea or vomiting Genitourinary Genitourinary ED: Denies dysuria or hematuria Musculoskeletal Musculoskeletal: Reports back pain and myalgias; Denies arthralgias or neck pain Integumentary Denies rash Neurologic Neurologic: Reports headache(s); Denies weakness Psychiatric Psychiatric: Denies depression EXAM Physical Exam Const Vital Signs: 03/02/21 05:10 03/02/21 05:12 03/02/21 06:10 Temperature 98.3 F 99.4 F H Temperature Source Oral Temporal Pulse Rate 112 H Respiratory Rate 18 Respiratory Effort Normal Respiratory Pattern Normal Blood Pressure 118/71 Blood Pressure Mean 86 Pulse Ox 95 Oxygen Delivery Method Room Air 03/02/21 06:33 Temperature Temperature Source Pulse Rate Respiratory Rate 16 Respiratory Effort Respiratory Pattern Blood Pressure Blood Pressure Mean Pulse Ox Oxygen Delivery Method Positive well nourished and well developed General Appearance ED: well developed HEENT Reports TM's clear and moist mucous membranes HEENT Narrative: Normal oropharynx Negative for tenderness Tympanic Membrane ED: Yes TM's clear Eyes PERRL and EOMs intact bilaterally Neck supple Neck Narrative: No meningeal signs Chest Wall inspection of chest normal Resp normal respiratory effort and clear to auscultation bilaterally Cardio regular rate, regular rhythm and no murmurs GI normal to inspection, nondistended, normoactive bowel sounds and non-tender Palpation: soft Back/Spine no CVA tenderness Back/Spine Narrative: No midline tenderness. Lower lumbar paraspinal tenderness to palpation bilaterally Extremity normal to inspection General Extremety ED: Negative for edema or tenderness General Extremity: Negative for edema Neuro oriented x3, CN's II-XII intact bilaterally and no sensory deficits noted Sensorium / Orientation: alert Motor Exam: strength 5/5 throughout Psych mental status grossly normal MDM MDM MDM Narrative Medical decision making narrative: Patient is evaluated for 2 days of flulike symptoms. Patient has positive for COVID-19 infection. This is likely the cause of her symptoms. Patient does not meet criteria for monoclonal antibody. Is given Motrin in the ER. As she drove here will be sent home with a prescription for Flexeril for her associated back pain. Encouraged to alternate Tylenol and ibuprofen at home for her symptoms as well. Counseled on return precautions. Counseled on quarantine recommendations. Patient verbalizes agreement understand this plan. Discharged home in stable condition. Lab Data Attestation: I reviewed the patient's lab results. Discharge Plan Triage Chief Complaint: General Illness ED Provider: Trini Tai Dx/Rx/DC Orders Clinical Impression: COVID-19 virus infection, Myalgia, Headache Instructions: Coronavirus Disease 2019 (COVID-19): Caring for Yourself or Others, ED Myalgias Prescriptions: New cyclobenzaprine 10 mg tablet 10 mg PO TID PRN (Reason: muscle spasm) Qty: 20 RF: 0 ibuprofen 600 mg tablet 600 mg PO Q6H PRN PRN (Reason: Pain Score 1-10/10) Qty: 20 RF: 0 No Action hydrocodone-acetaminophen [hydrocodone-acetaminophen] 1 TABLET tablet 1 tab PO Q4H PRN PRN (Reason: Pain) 2 Days Qty: 10 RF: 0 Primary Care Provider: Hank Alvarado Referrals: Hank Alvarado DO [Primary Care Provider] - Activity Restrictions/Additional Instructions: The current guidelines are to quarantine at home for 5 days from onset of symptoms and then mask for an additional 5 days if you no longer having severe symptoms including fever or shortness of breath/worsening cough. Disposition Disposition: Home, Self Care Discharge Date/Time: 03/02/21 06:34
[2021-03-02] MEDS: Ibuprofen 600 MG Tablet PO (06:08)
[2021-03-02 06:10] VITALS: TEMP 37.4
[2021-03-02 06:33] VITALS: RESP 16
== END 2021-03-02 06:34 | disposition home or self-care (01) ==
PROVIDERS: Emergency Provider Emergency Medicine; PCP Student in an Organized Health Care Education/Training Program; Visit Provider Emergency Medicine
DX: U07.1 COVID-19 (principal); F17.210 Nicotine dependence, cigarettes, uncomplicated
CPT/HCPCS: 87426; 87804; 99282

== ENCOUNTER 2021-03-28 09:18 | Emergency (ER) | payer MEDICAID, SELFPAY ==
[2021-03-28 09:18] VITALS: BP 122/70; PULSE 99; RESP 17; TEMP 35.6; O2SAT 97; BMI 20.6
--- NOTE | 2021-03-28 09:52 | EDS_ITS ---
HPI History of Present Illness Chief Complaint: Back Narrative Narrative: Patient presents with low back pain and sacral pain that she has had for the last week. 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 She states that although she has a bulging disc, this feels different. However, she denies any red flag signs. No saddle anesthesia, no loss of bowel or bladder. Pain radiates down her right leg. She denies any difficulty urinating or having bowel movements. She states she was seen in the ED last week and was given steroids which did not improve. They did not take x- rays. She is had sciatica before with the radiation down her leg. She has been taking ibuprofen without relief. [facility] Medical History (Updated 03/28/21 @ 11:12 by To Hanks MD) Anxiety Depression Infected sebaceous cyst of skin Skin lesion of face Home Medications hydrocodone-acetaminophen 1 tab PO Q4H PRN PRN 2 Days #10 tablet 12/17/20 [Rx Last Taken Unknown] cyclobenzaprine 10 mg PO TID PRN #20 tab 03/02/21 [Rx Last Taken Unknown] ibuprofen 600 mg PO Q6H PRN PRN #20 tab 03/02/21 [Rx Last Taken Unknown] cyclobenzaprine 10 mg PO TID PRN #20 tab 03/28/21 [Rx Last Taken Unknown] diclofenac sodium 75 mg PO BID PRN #20 tab 03/28/21 [Rx Last Taken Unknown] Allergy/AdvReac Type Severity Reaction Status Date / Time No Known Allergies Allergy Verified 03/28/21 09:18 Family History Mother Lung cancer Liver cancer Surgical History History of surgical removal of skin lesion Hx of hernia repair Hx of tubal ligation Social History Smoking Status: Current every day smoker tobacco type: cigarettes substance use type: does not use ROS ROS ED ROS Narrative Constitutional: No fever, no chills. HEENT: No sore throat. No neck pain. No loss of vision. No rhinorrhea. Cardiovascular: No chest pain. No palpitations. No pedal edema. Respiratory: No cough, no shortness of breath. Abdominal: No abdominal pain. No nausea. No vomiting. Genitourinary: No dysuria. No hematuria. Musculoskeletal: No myalgias. No arthralgias. Low back pain and sacral pain. Neurologic: No headaches. No dizziness. No lightheadedness. Radiation of pain down right leg consistent with previous sciatica Skin: No rash. No change in color. Psychiatric: No depression. No anxiety. EXAM Physical Exam Narrative Exam Narrative: Afebrile. Vital signs noted. HEENT: Normocephalic. Atraumatic. PERRL, EOMI. Neck soft and supple. No point tenderness or step off. Cardiovascular: Regular rate and rhythm. No murmurs, rubs, or gallops appreciated. Respiratory: No tachypnea. Lungs clear to auscultation bilaterally. Gastrointestinal: Abdomen soft, nontender, with normoactive bowel sounds. No rebound or guarding. Neurological: Awake. Alert. Nonfocal, nonlateralizing. Skin: No rash. Normal color. No pallor. Musculoskeletal: No pedal edema. Full range of motion extremities. Straight leg raising is negative. She feels tightness in her back with raising of both legs but no contralateral radicular signs. Const Vital Signs: 03/28/21 09:18 Temperature 96.0 F L Temperature Source Temporal Pulse Rate 99 Respiratory Rate 17 Blood Pressure 122/70 H Blood Pressure Mean 87 Pulse Ox 97 Oxygen Delivery Method Room Air MDM MDM MDM Narrative Medical decision making narrative: X-rays were obtained of the lumbar spine and sacrum. She was administered Toradol 60 mg intramuscularly for analgesia. I do not feel that emergent MRI is indicated. There are no red flag signs for cauda equina. X-rays obtained which show normal x-ray of the lumbar spine and of the sacrum and coccyx. She will be given prescriptions for Flexeril and for diclofenac. She will follow up with her primary care physician. She was told she may need physical therapy prior to getting an outpatient MRI. I feel she be discharged safely home with follow-up. Return instructions were reviewed. Disposition is discharged home in stable condition. Radiography Diagnostic Testing: Clinical Impression(s) from Imaging Studies Lumbar Spine X-Ray 03/28/21 10:00 IMPRESSION: Normal x-ray examination of the lumbar spine. Electronically Signed: Jorge Palafox MD at 10:22 EST , Sacrum and Coccyx X-Ray 03/28/21 10:00 IMPRESSION: Normal x-rays of the sacrum and coccyx. Electronically Signed: Jorge Palafox MD at 10:23 EST , Discharge Plan Triage Chief Complaint: Back ED Provider: To Hanks Dx/Rx/DC Orders Clinical Impression: Back pain, Lumbar radiculopathy, acute Instructions: ED Back Pain (Acute or Chronic), ED Sciatica Prescriptions: New cyclobenzaprine 10 mg tablet 10 mg PO TID PRN (Reason: muscle spasm) Qty: 20 RF: 0 diclofenac sodium 75 mg tablet,delayed release (DR/EC) 75 mg PO BID PRN (Reason: pain) Qty: 20 RF: 0 No Action hydrocodone-acetaminophen [hydrocodone-acetaminophen] 1 TABLET tablet 1 tab PO Q4H PRN PRN (Reason: Pain) 2 Days Qty: 10 RF: 0 cyclobenzaprine 10 mg tablet 10 mg PO TID PRN (Reason: muscle spasm) Qty: 20 RF: 0 ibuprofen 600 mg tablet 600 mg PO Q6H PRN PRN (Reason: Pain Score 1-10/10) Qty: 20 RF: 0 Primary Care Provider: Hank Alvarado Referrals: Hank Alvarado, DO [Primary Care Provider] -
[2021-03-28] MEDS: Ketorolac 60 MG/2 ML Vial IM (09:58)
--- NOTE | 2021-03-28 10:00 | RAD_ITS ---
STUDY: X-RAY - LUMBAR SPINE REASON FOR EXAM: Female, 50 years old. pain TECHNIQUE: 2 view(s) of the lumbar spine were obtained. COMPARISON: 12/17/2020 FINDINGS: Normal lumbar lordosis. There is no substantial scoliosis. There is a normal alignment of the vertebrae. Normal vertebral bodies and endplates. Normal disc space heights. The soft tissue structures are unremarkable. RAD/Lumbar Spine 2 or 3 Views IMPRESSION: Normal x-ray examination of the lumbar spine. Electronically Signed: Jorge Palafox MD at 10:22 EST ,
--- NOTE | 2021-03-28 10:00 | RAD_ITS ---
STUDY: X-RAY - SACRUM/COCCYX REASON FOR EXAM: Female, 50 years old. pain TECHNIQUE: 3 view(s) of the sacrum and coccyx were obtained. COMPARISON: None. FINDINGS: Normal bilateral sacroiliac joints. Normal visualized sacral ala and fused sacral bodies. Normal sacrococcygeal junction with a normal angulation. Normal coccygeal segments. The presacral soft tissue structures are unremarkable. RAD/Sacrum-Coccyx min 2 Views IMPRESSION: Normal x-rays of the sacrum and coccyx. Electronically Signed: Jorge Palafox MD at 10:23 EST ,
== END 2021-03-28 11:32 | disposition home or self-care (01) ==
LOC: ED 09:56
PROVIDERS: Emergency Provider Emergency Medicine; PCP Student in an Organized Health Care Education/Training Program; Visit Provider Emergency Medicine
DX: M54.16 Radiculopathy, lumbar region (principal); F17.210 Nicotine dependence, cigarettes, uncomplicated
CPT/HCPCS: 72100; 72220; 96372; 99282

== ENCOUNTER 2021-07-25 06:35 | Emergency (ER) | payer MEDICAID, SELFPAY ==
[2021-07-25 06:38] VITALS: BP 120/64; PULSE 94; RESP 18; TEMP 36.4; O2SAT 99
--- NOTE | 2021-07-25 07:10 | EDS_ITS ---
HPI History of Present Illness Chief Complaint: Back Informant: patient Onset/Context/Timing Onset: Days Timing: Continuous Quality: Sharp Location: See diagram and Lumbar Current Severity: Moderate Maximum Severity: Moderate Worsened by: improves with Movement Relieved by: Remaining Still Associated Symptoms Associated Symptoms: Radiation to Left Leg; Negative for Numbness, Tingling, Radiation to Right Leg, Fever, Abdominal Pain, Dysuria, Unable to Ambulate, Unable to Transfer, Urinary Retention, Urinary Incontinence, Constipation and Fecal Incontinence Narrative Narrative: 50-year-old female no seen past medical history. Only medication she is on is Naprosyn. States she has had a URI for the last week. She had been on prednisone which is now resolved. States that the cough is not getting any better. She has green phlegm. Denies any fever. Has had some wheezing. Patient is a smoker. States she has been coughing hard and has caused pain in her lower back and now she has pain radiating to her left leg. She has had sciatica before. Denies any falls or trauma. Has never had back surgery. Denies any bowel or bladder incontinence or retention. Prior similar symptoms: Yes Recent Illness/Hospitalization: No PFSH PFSH Medical History (Updated 07/25/21 @ 07:[address] Aries Horn MD) Anxiety Depression Infected sebaceous cyst of skin Skin lesion of face Home Medications ibuprofen 600 mg PO Q6H PRN PRN #20 tab 03/02/21 [Rx Last Taken Unknown] azithromycin [Zithromax Z-Chiquita] 250 mg PO DAILY 4 Days #4 tab 07/25/21 [Rx Last Taken Unknown] naproxen 500 mg PO Q8H PRN PRN 07/25/21 [History Last Taken Unknown] prednisone 40 mg PO DAILY 7 Days #14 tab 07/25/21 [Rx Last Taken Unknown] Allergy/AdvReac Type Severity Reaction Status Date / Time No Known Allergies Allergy Verified 07/25/21 06:37 Family History Mother Lung cancer Liver cancer Surgical History History of surgical removal of skin lesion Hx of hernia repair Hx of tubal ligation Social History Smoking Status: Current every day smoker tobacco type: cigarettes substance use type: does not use ROS ROS ED ROS Narrative Cough. Back pain. Review of Systems ROS Unobtainable: Denies due to encephalopathy Constitutional Constitutional ED: Denies fever(s) Eyes Eyes: Denies change in vision ENT ENT ED: Denies ear pain Cardiovascular Cardiovascular: Denies chest pain Respiratory/Chest Respiratory/Chest: Denies dyspnea Gastrointestinal Gastrointestinal: Denies abdominal pain, diarrhea, nausea or vomiting Genitourinary Genitourinary ED: Denies dysuria Musculoskeletal Musculoskeletal: Reports back pain; Denies myalgias Integumentary Denies rash Neurologic Neurologic: Denies headache(s) Psychiatric Psychiatric: Denies depression Endocrine Endocrinology: Denies polyuria Hematologic/Lymphatic Hematologic/Lymphatic: Denies easy bruising Allergic/Immunologic Allergic/Immunologic ED: Denies urticaria EXAM Physical Exam Narrative Exam Narrative: 50-year-old female vital signs are stable afebrile. Pulse ox 99% on room air no signs hypoxia. She does not look septic or toxic. No distress. H EENT exam unremarkable. Neck nontender. Lungs few scattered wheezes. Coarse breath sounds. No rhonchi. No rales. Heart regular rate and rhythm no murmur. Rate about 90. Abdomen soft nontender. Moving all 4 extremities. Neurovascularly intact. 5 of 5 motor strength. Able to stand and walk without any difficulty. Back exam mild lumbar tenderness exquisite left SI tenderness and positive straight leg raise on the left consistent with acute sciatica. Neurologic exam is normal. No focal motor weakness or numbness. Const Vital Signs: 07/25/21 06:38 Temperature 97.5 F L Temperature Source Temporal Pulse Rate 94 Respiratory Rate 18 Blood Pressure 120/64 Blood Pressure Mean 82 Pulse Ox 99 Oxygen Delivery Method Room Air Positive well nourished and well developed; Negative for obese, cachectic, contractures or unkempt General Appearance ED: well developed and NAD; Negative for unkempt, cachectic, contractures or pallor Nutritional Appearance: Negative for cachectic or obese HEENT Reports moist mucous membranes Negative for trauma or tenderness Eyes PERRL and EOMs intact bilaterally Neck no lymphadenopathy, supple and no JVD General: Negative for tenderness Resp normal respiratory effort and No clear to auscultation bilaterally Effort and Inspection: Negative for other Auscultation: wheezes; Negative for rales or rhonchi Cardio regular rate, regular rhythm, S1 normal heart sound, S2 normal heart sound and no murmurs GI normal to inspection, nondistended, normoactive bowel sounds, soft to palpation, non-tender, non-distended and no masses Inspection: Negative for abdominal distention Auscultation: Negative for hyperactive bowel sounds Palpation: Negative for tender, guarding or rebound tenderness present Back/Spine Negative for normal to inspection or no thoracic nor lumbar tenderness Back/Spine Narrative: Mild lower lumbar tenderness. Left SI tenderness. Po sitive straight leg raise on the left. General Back: Negative for CVA tenderness or scar(s) Cervical Spine: Negative for cervical spine tenderness and Negative for paracervical muscle tenderness Thoracic Spine / Upper Back: Negative for paraspinal muscle tenderness Lumbar Spine / Lower Back: straight leg raise positive - left; Negative for straight leg raise negative bilaterally Extremity normal to inspection and no clubbing, cyanosis or edema General Extremety ED: Yes tenderness; Negative for edema General Extremity: Negative for edema Neuro oriented x3 and no sensory deficits noted Sensorium / Orientation: alert; Negative for confused, lethargic or stuporous Motor Exam: strength 5/5 throughout; Negative for strength abnormal Psych mental status grossly normal Appearance: Negative for unkempt Mood & Affect: Negative for depressed or tearful Skin no rashes or lesions noted and no wounds General Skin Exam: Negative for jaundice or pallor MDM MDM MDM Narrative Medical decision making narrative: 50-year-old female with acute sciatica with a positive straight leg raise on the left. Also has a URI. She does not want a chest x-ray clinically I do not hear pneumonia. She will undergo COVID testing. Repeat exam unchanged. Discussed with patient. Since her URI is not improving and she is a smoker. She will be placed on Zithromax Z-CHIQUITA. I also prednisone 40 mg a day for 7 days for the bronchospasm and also her sciatica. Otherwise Tylenol Motrin for pain. Follow-up if not improving. Return if worse. Patient was given her first dose of Zithromax in the emergency department. Lab Data Lab results narrative: Rapid COVID antigen is negative. Discharge Plan Triage Chief Complaint: Back ED Provider: Aries Horn Dx/Rx/DC Orders Clinical Impression: Sciatica, Bronchitis Instructions: ED Bronchitis with Wheezing (Adult), ED Sciatica Prescriptions: New prednisone 20 mg tablet 40 mg PO DAILY 7 Days Qty: 14 RF: 0 azithromycin [Zithromax Z-Chiquita] 250 mg tablet 250 mg PO DAILY 4 Days Qty: 4 RF: 0 No Action ibuprofen 600 mg tablet 600 mg PO Q6H PRN PRN (Reason: Pain Score 1-10/10) Qty: 20 RF: 0 naproxen 500 mg tablet 500 mg PO Q8H PRN PRN (Reason: Pain) RF: 0 Primary Care Provider: Hank Alvarado Referrals: Hank Alvarado, [Primary Care Provider] - 1 Week if not improving Activity Restrictions/Additional Instructions: Long-term stop smoking. Prednisone daily which will help both with the wheezing in your lungs and also the pain in your back. Follow-up with your doctor if not improving. Return if worse. Motrin and Tylenol for pain. Disposition Disposition: Home, Self Care
[2021-07-25] MEDS: Azithromycin 250 MG Tablet 500 MG PO (08:07)
--- NOTE | 2021-07-25 08:10 | NURSING ---
WHEN THIS RN WENT TO DC THIS PT, THIS RN WAS EXPLAINING DC MEDS. WHILE WORKING THROUGH PC ISSUES, THIS RN GOES TO GRAB A COMPUTER ON WHEELS IN ORDER TO ADMINISTER DOSE OF ZITHROMAX PER ORDER ON APR. WHEN PT ASKS THIS RN WHAT IS HE GIVING ME FOR PAIN? THIS RN EXPLAINS THAT DR. ESPINOZA PRESCRIBED HER ZITHROMAX FOR HER BRONCHITIS AND PREDNISONE TO HELP DECREASE INFLAMMATION WHICH WILL THEN REDUCE THE PAIN. PT THEN GETS UPSET AND ANGRY. PT RAISES VOICE AND STATES I ALREADY FUCKING TOLD HIM THAT DOESN'T WORK. THIS RN PROCEEDS WITH WELDING OPERATOR OF ZITHROMAX PER ORDER. PT ATTEMPTING TO GET OUT OF BED TO DC AND PT YELLING OUT THAT SHE CANNOT STAND. THIS RN OFFERS A WHEELCHAIR FOR PT TO DC COMFORTABLY. PT THEN YELLS AT THIS RN AND STATES WHAT GOOD IS THAT GOING TO DO WHEN I HAVE TO WALK TO THE [employer]. PT THEN THROWS AWAY CUP AND SLAMS LID OF TRASHCAN. PT ANGERLY WALKS OUT OF ROOM AND SLAMS HER HAND ON THE BUTTON FOR ER EXIT. PT THEN STORMS OUT OF ER WITH NORMAL GAIT.
[2021-07-25 08:21] VITALS: RESP 18
== END 2021-07-25 08:21 | disposition home or self-care (01) ==
PROVIDERS: Emergency Provider Emergency Medicine; PCP Student in an Organized Health Care Education/Training Program; Visit Provider Emergency Medicine
DX: M54.42 Lumbago with sciatica, left side (principal); J40 Bronchitis, not specified as acute or chronic; F17.210 Nicotine dependence, cigarettes, uncomplicated
CPT/HCPCS: 87811; 99283

== ENCOUNTER 2021-08-05 09:11 | Emergency (ER) | payer MEDICAID, SELFPAY ==
[2021-08-05 09:13] VITALS: BP 95/60; PULSE 109; RESP 18; TEMP 36.7; O2SAT 98; BMI 24.3
--- NOTE | 2021-08-05 10:10 | VDLE_ITS ---
Reason For Study: Pain Procedure LEFT This is a venous duplex using B-mode, color GSV is normal. flow and spectral Doppler. CFV is compressible, spontaneous, phasic, Exam performed in department. competent, and demonstrates normal A preliminary report was called and/or faxed augmentation. to RALPH Gann RN. FV is compressible, spontaneous, phasic, competent and demonstrates normal augmentation. POP V is compressible, spontaneous, phasic, competent and demonstrates normal augmentation. T/P Trunk is compressible. PTV is compressible. LT PerV is compressible. VL/Venous Duplex US, Unilateral Interpretation Summary There is no evidence of left lower extremity deep vein thrombosis. Left great s aphenous vein appears patent and compressible segmentally. Ordering Physician: Riley Gann Referring Physician: Hank Alvarado Performed By: Caitlin Hall RVT
--- NOTE | 2021-08-05 10:10 | ED.VIS.LOWEX ---
HPI History of Present Illness HPI Narrative: Patient presents with left lower extremity pain that has been getting progressively worse. Patient states it has been ongoing for quite some time. Patient states that her primary care physician thought that this could be from a DVT and scheduled an outpatient venous duplex of her left lower extremity at [facility]. Patient states she was unable to drive to [facility] so her primary care physician told her to come to the emergency department today. Patient denies any swelling. Patient denies any trauma or injury. Patient states nothing makes her pain better and nothing makes it worse. Patient states her pain is over the posterior aspect of her left calf and left thigh. Chief Complaint: Lower Extremity Injury Informant: patient Onset/Context/Timing Onset: Month(s) Context: Gradual Onset Timing: Continuous Quality of Pain: - (Cramping) Location: Left lower extremity Worsened by: Nothing Relieved by: Nothing Associated Symptoms Associated Symptoms: Positive for Parasthesia; Negative for Weakness or Loss of Funtion PFSH PFSH Medical History (Updated 08/05/21 @ 10:[address] Riley Gann DO) Anxiety Depression Infected sebaceous cyst of skin Skin lesion of face Home Medications ibuprofen 600 mg tablet 600 mg PO Q6H PRN PRN Pain Score 1-11/24 #20 tabs 03/02/21 [Rx Last Taken Unknown] azithromycin 250 mg tablet (Zithromax Z-Davon) 250 mg PO DAILY 4 days #4 tabs 07/25/21 [Rx Last Taken Unknown] naproxen 500 mg tablet 500 mg PO Q8H PRN PRN Pain 07/25/21 [History Last Taken Unknown] prednisone 20 mg tablet 40 mg PO DAILY 7 days #14 tabs 07/25/21 [Rx Last Taken Unknown] Allergy/AdvReac Type Severity Reaction Status Date / Time No Known Allergies Allergy Verified 08/05/21 09:12 Family History Mother Lung cancer Liver cancer Surgical History History of surgical removal of skin lesion Hx of hernia repair Hx of tubal ligation Social History Smoking Status: Current every day smoker tobacco type: cigarettes substance use type: does not use ROS ROS ED Constitutional Constitutional ED: Denies chills or fever(s) Eyes Eyes: Denies blurry vision or change in vision ENT ENT ED: Denies rhinorrhea or sore throat Cardiovascular Cardiovascular: Denies chest pain or palpitations Respiratory/Chest Respiratory/Chest: Denies cough or dyspnea Gastrointestinal Gastrointestinal: Denies nausea or vomiting Genitourinary Genitourinary ED: Denies dysuria or hematuria Musculoskeletal Musculoskeletal: Denies back pain or neck pain Integumentary Denies abscess or rash Neurologic Neurologic: Reports paresthesias LLE; Denies headache(s) or weakness Allergic/Immunologic Allergic/Immunologic ED: Denies mouth swelling or urticaria EXAM Physical Exam Const Vital Signs: 08/05/21 09:13 Temperature 98.0 F Temperature Source Temporal Pulse Rate 109 H Respiratory Rate 18 Blood Pressure 95/60 Blood Pressure Mean 71 Pulse Ox 98 Oxygen Delivery Method Room Air Positive well nourished and well developed General Appearance ED: well developed and NAD HEENT Reports moist mucous membranes Neck full ROM Extremity Extremity Narrative: There is tenderness over the left calf and left posterior thigh. There is no edema. There is no deformity. There is full range of motion. Strength is 5/5 bilaterally in the lower extremities. There are no sensory deficits noted. Pedal pulses are equal bilaterally. Patient ambulates without difficulty. Neuro oriented x3, CN's II-XII intact bilaterally, moves all extremities and no sensory deficits noted Sensorium / Orientation: alert Motor Exam: strength 5/5 throughout Psych mental status grossly normal MDM MDM MDM Narrative Medical decision making narrative: Venous duplex of the left lower extremity was obtained. There is no evidence of DVT. Patient was advised of her findings. Patient was instructed to continue her medications as previously prescribed. Patient was instructed to follow-up with her primary care physician in 5 to 7 days. Patient understood and was agreeable with the plan. All questions were answered. Discharge Plan Triage Chief Complaint: Lower Extremity Injury ED Provider: Riley Gann Dx/Rx/DC Orders Clinical Impression: Lower extremity pain, left Instructions: ED Pain, Acute, Uncertain Cause Prescriptions: No Action ibuprofen 600 mg tablet 600 mg PO Q6H PRN PRN (Reason: Pain Score 1-10/10) Qty: 20 0RF naproxen 500 mg tablet 500 mg PO Q8H PRN PRN (Reason: Pain) Label Comments: Take 1 tablet by mouth twice daily with meals. For back pain, Take with food. prednisone 20 mg tablet 40 mg PO DAILY 7 Days Qty: 14 0RF azithromycin [Zithromax Z-Davon] 250 mg tablet 250 mg PO DAILY 4 Days Qty: 4 0RF Rx Instructions: start on day 2 of therapy Stand Alone Forms: ED Work / School Excuse Primary Care Provider: Hank Alvarado Referrals: Hank Alvarado DO [Primary Care Provider] - 5-7 Days Disposition Disposition: Home, Self Care
== END 2021-08-05 10:53 | disposition home or self-care (01) ==
PROVIDERS: Emergency Provider Emergency Medicine; PCP Student in an Organized Health Care Education/Training Program; Visit Provider Emergency Medicine
DX: M79.605 Pain in left leg (principal); F17.210 Nicotine dependence, cigarettes, uncomplicated
CPT/HCPCS: 93971; 99282

== ENCOUNTER 2022-11-26 12:59 | Emergency (ER) | payer OTHER, SELFPAY ==
[2022-11-26 13:00] VITALS: BP 110/81; PULSE 101; RESP 18; TEMP 35.9; O2SAT 98; BMI 22.8
--- NOTE | 2022-11-26 14:13 | EX.ED.DYSGE1 ---
HPI History of Present Illness Chief Complaint: General Illness [facility] Medical History Anxiety Depression Infected sebaceous cyst of skin Skin lesion of face Home Medications prednisone 20 mg tablet 20 mg PO DAILY #5 tabs 11/26/22 [Rx Last Taken Unknown] Allergy/AdvReac Type Severity Reaction Status Date / Time No Known Allergies Allergy Verified 11/26/22 13:01 Family History Mother Lung cancer Liver cancer Surgical History History of surgical removal of skin lesion Hx of hernia repair Hx of tubal ligation Social History Smoking Status: Current every day smoker tobacco type: cigarettes substance use type: does not use EXAM Physical Exam Const Vital Signs: 11/26/22 13:00 11/26/22 13:42 Temperature 96.7 F L Temperature Source Temporal Pulse Rate 101 H Respiratory Rate 18 Respiratory Pattern Normal Blood Pressure 110/81 H Blood Pressure Mean 90 Pulse Ox 98 Oxygen Delivery Method Room Air MDM MDM MDM Narrative Medical decision making narrative: HISTORY OF PRESENT ILLNESS: 51-year-old female here with concern for shortness of breath and associated dizziness. She states that started approximately 4 AM. This was 10 hours prior to arrival. States symptoms are constant. She denies any exacerbating features such as exertion. Denies any lower extremity edema, orthopnea or paroxysmal nocturnal dyspnea. Denies any cough or fever. Denies any bleeding diathesis. The patient denies recent surgery in the last 4 weeks or immobilization in the last 3 days, denies previous diagnosis of DVT or PE, hemoptysis, unilateral leg swelling or malignancy with treatment the last 6 months or palliative. No estrogen use noted. Patient also endorses having chronic left-sided hip/back pain that she and attributes to sciatica. She is not concerned about this pain today. Patient denies any saddle anesthesia, urinary retention, bowel or bladder incontinence, lower extremity weakness, fever or IV drug use, no recent spinal manipulation or surgery, no recent urinary catheterization. She is a smoker. She has a family history of CAD. Denies any drug use. REVIEW OF SYSTEMS: Pertinent positives: Shortness of breath, dizziness, chronic back pain Pertinent negatives: Lower extremity edema, cough, bleeding diathesis, syncope, chest pain PHYSICAL EXAM: Nursing triage notes reviewed, Vital signs reviewed Constitutional: please see mdm HENT: MMM Eyes: Pupils equal round and reactive to light, Extraocular muscles intact Neck: No stridor, no JVD, full neck ROM Lungs: Clear to auscultation, No wheezing or rales. No increased work of breathing, no conversational dyspnea, no accessory muscle use, no nasal flaring. No respiratory distress noted Heart: Regular rate and rhythm, No murmurs, No rubs and No gallops, 2+ distal pulses (radial, femoral, posterior tibial) in all extremities Abdomen: Soft, there is no tenderness, rigidity, rebound or guarding, no obvious peritoneal signs, no palpable pulsatile abdominal masses, no auscultated abdominal bruit : No CVAT Extremities: No edema Neuro: Alert and oriented x3, neuro exam at baseline, cranial nerves II through XII are intact. No pain with extraocular muscle movement. There is negative test of skew. 5 of 5 strength in upper and lower extremities in flexion extension. Intact sensation to light touch in upper and lower extremity dermatomes. No truncal or extremity ataxia. No dysdiadochokinesia. Normal gait. 2+ reflexes in upper and lower extremities. No meningeal signs. Negative Babinski. NIH of 0. Intact sensation L1-S1 dermatomal distributions. Intact 5/5 strength in hip flexion (T12-L3). Knee extension (L2-L4). Ankle dorsiflexion (L4-L5). Ankle plantar flexion (S1). Great toe extension (L5). 2+ patellar and Achilles DTRs. Skin: No rash or lesions noted MEDICAL DECISION MAKING: Chief Complaint: Shortness of breath, dizziness External records reviewed: Prior ED notes reviewed: Last ED visit in July 2021. Imaging studies reviewed: Chest x-ray from 2020 shows hyperinflation Factors affecting care: anxiety, depression, Social determinants of health: Tobacco abuse History obtained from others: none Consults: none [facility] Narrative: Patient was hemodynamically stable, afebrile, nontoxic-appearing. No respiratory distress noted. Lungs were clear. No focal consolidation, wheezing or rales noted. I considered the following differential diagnosis: Viral infection, ACS, arrhythmia, anemia, pneumonia, heart failure, I obtained a broad lab and imaging work-up to further elucidate the etiology of the patient complaints ALL IMAGES (IF OBTAINED) HAVE BEEN PERSONALLY REVIEWED AND INTERPRETED BY MYSELF. Prior to lab and imaging studies being resulted patient stated she would not like an IV would not like further testing. She states she is not concerned about her shortness breath or dizziness but just wants symptomatic treatment for her chronic sciatica. Patient was alert and orient x3 and had capacity to make own medical decisions. Patient was able to voice risk such as life or limb threatening etiology, this etiology, inability to earn income and chose to be discharged home with oral pain medications. Strict return precautions were discussed. Patient expressed understanding The patient and/or family, caregivers express understanding. The patient and/or family, caregivers agrees with the plan. Shared decision making: I will have a discussion with the patient and or visitors regarding risk/benefits of further testing or admission. They will be made aware of of the risk/benefits inherent in this decision they will be given the opportunity to voice understanding. Total critical care time today provided was at least 0 [] minutes. This excludes separately billable procedures. Critical care time (if documented) is secondary to the patient having high probability of clinically significant/life threatening deterioration in the patient's condition which required my urgent intervention. Impression: 1. Chronic back pain 2. Shortness of breath 3. Dizziness Dispo: Discharge Discharge Plan Triage Chief Complaint: General Illness ED Provider: Prabhu Vaughn Dx/Rx/DC Orders Instructions: ED Sciatica Prescriptions: New prednisone 20 mg tablet 20 mg PO DAILY Qty: 5 0RF Primary Care Provider: Hank Alvarado Referrals: Hank Alvarado DO [Primary Care Provider] - Activity Restrictions/Additional Instructions: Thank you for trusting us with your care today! Please take Tylenol (2 pills, 650 mg), ibuprofen (2 pills, 400 mg) every 6 hours as needed for pain and fever control. Please take prednisone daily for next 5 days. Please return to the emergency department if your symptoms change or worsen. If you develop worsening shortness of breath, dizziness, you lose consciousness, develop focal weakness or numbness, slurred speech, loss of vision, chest pain, lower extremity swelling. In terms of her back pain please return if develop bowel or bladder incontinence, difficulty with sensation on your private parts, loss of the ability to move your legs, urinary retention. Please follow with your primary care physician for further outpatient evaluation and management. Disposition Disposition: Home, Self Care
[2022-11-26] MEDS: Oxycodone/Apap 5/325 Tablet PO (15:17)
[2022-11-26] MEDS: predniSONE 20 MG Tablet 40 MG PO (15:17)
[2022-11-26] MEDS: Ibuprofen 200 MG Tablet 400 MG PO (15:18)
== END 2022-11-26 15:22 | disposition home or self-care (01) ==
PROVIDERS: Emergency Provider Emergency Medicine; PCP Student in an Organized Health Care Education/Training Program; Visit Provider Emergency Medicine
DX: M54.9 Dorsalgia, unspecified (principal); G89.29 Other chronic pain; R06.02 Shortness of breath; R42 Dizziness and giddiness; F17.210 Nicotine dependence, cigarettes, uncomplicated
CPT/HCPCS: 99284

== ENCOUNTER 2022-12-14 08:10 | Emergency (ER) | payer OTHER, SELFPAY ==
[2022-12-14 08:10] VITALS: BP 103/68; PULSE 103; RESP 16; TEMP 36.3; O2SAT 98; BMI 51.2
--- NOTE | 2022-12-14 08:51 | ED.VIS.BACK ---
HPI History of Present Illness Chief Complaint: Back Informant: patient Onset/Context/Timing Onset: Yesterday Context: Sudden Onset Timing: Continuous Quality: Sharp Location: Lumbar Worsened by: improves with Movement Relieved by: Nothing Associated Symptoms Associated Symptoms: Negative for Numbness, Tingling, Radiation to Right Leg, Radiation to Left Leg, Fever, Abdominal Pain, Dysuria, Unable to Ambulate, Unable to Transfer, Urinary Retention, Urinary Incontinence, Constipation or Fecal Incontinence Narrative Narrative: Patient presents with back pain that became worse yesterday. Patient states her pain is over her lower lumbar and sacral area. Patient states she recently had a flareup of her sciatica but states this has improved. Patient states her pain is now across her lower back. Patient describes her pain as sharp. Patient states it is worse with movement. Patient states nothing seems to help with it. Patient states she has been taking [id number] analgesics with no relief. Patient denies any radiation of her pain. Patient denies any paresthesias or weakness. Patient denies any bowel or bladder changes. Patient denies any saddle anesthesia. [facility] Medical History (Updated 12/14/22 @ 09:[address] Riley Gann DO) Anxiety Depression Infected sebaceous cyst of skin Skin lesion of face Home Medications prednisone 20 mg tablet 20 mg PO DAILY #5 tabs 11/26/22 [Rx Last Taken Unknown] hydrocodone-acetaminophen 5-325mg 5mg-325mg 1 tab PO Q6H PRN PRN Pain 3 days #10 TABLETS 12/14/22 [Rx Last Taken Unknown] Allergy/AdvReac Type Severity Reaction Status Date / Time No Known Allergies Allergy Verified 12/14/22 08:10 Family History Mother Lung cancer Liver cancer Surgical History History of surgical removal of skin lesion Hx of hernia repair Hx of tubal ligation Social History Smoking Status: Current every day smoker tobacco type: cigarettes substance use type: does not use ROS ROS ED Constitutional Constitutional ED: Denies chills or fever(s) Eyes Eyes: Denies blurry vision or change in vision ENT ENT ED: Denies rhinorrhea or sore throat Cardiovascular Cardiovascular: Denies chest pain or palpitations Respiratory/Chest Respiratory/Chest: Denies cough or dyspnea Gastrointestinal Gastrointestinal: Denies nausea or vomiting Genitourinary Genitourinary ED: Denies dysuria or hematuria Musculoskeletal Musculoskeletal: Reports back pain; Denies neck pain Integumentary Denies abscess or rash Neurologic Neurologic: Denies headache(s) or weakness Allergic/Immunologic Allergic/Immunologic ED: Denies mouth swelling or urticaria EXAM Physical Exam Const Vital Signs: 12/14/22 08:10 Temperature 97.4 F L Temperature Source Temporal Pulse Rate 103 H Respiratory Rate 16 Blood Pressure 103/68 Blood Pressure Mean 79 Pulse Ox 98 Oxygen Delivery Method Room Air Positive well nourished and well developed General Appearance ED: well developed and NAD HEENT Reports moist mucous membranes Neck supple and no JVD Back/Spine Back/Spine Narrative: There is tenderness over the lower lumbar spine and paraspinal muscles. There is mild tenderness over the upper sacrum. There is no bony crepitance or step-off. There is no edema or ecchymosis. Range of motion was limited in all motions of the lumbar spine secondary to pain. Strength is 5/5 bilaterally in lower extremities. Sensation was intact to light touch bilaterally in the lower extremities. Deep tendon reflexes are 2/4 bilaterally in the lower extremities. Straight leg raises were negative bilaterally. Lumbar Spine / Lower Back: ROM limited and straight leg raise negative bilaterally Extremity normal to inspection General Extremety ED: Negative for edema or tenderness General Extremity: Negative for edema Neuro oriented x3 and no sensory deficits noted Sensorium / Orientation: alert Motor Exam: strength 5/5 throughout Deep Tendon Reflexes: Rt Patellar (L4): 2+, Lt Patellar (L4): 2+, Rt Ankle (S1): 2+ and Lt Ankle (S1): 2+ Deep Tendon Reflexes Back: Rt Patellar (L4): 2+, Lt Patellar (L4): 2+, Rt Ankle (S1): 2+ and Lt Ankle (S1): 2+ Psych mental status grossly normal MDM MDM MDM Narrative Medical decision making narrative: Smoking cessation was discussed. 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 I do not feel any imaging is necessary at this time. Patient was given a dose of [place] here. Patient was given a prescription for a short course of [place]. Patient was instructed to follow-up with her primary care physician in 5 to 7 days. Patient understood and was agreeable with the plan. All questions were answered. Discharge Plan Triage Chief Complaint: Back ED Provider: Riley aGnn Dx/Rx/DC Orders Clinical Impression: Acute low back pain, Anxiety Instructions: ED Back Pain (Acute or Chronic) Prescriptions: New hydrocodone-acetaminophen [hydrocodone-acetaminophen] 5-325 mg tablet 1 tab PO Q6H PRN PRN (Reason: Pain) 3 Days Qty: 10 0RF No Action prednisone 20 mg tablet 20 mg PO DAILY Qty: 5 0RF Stand Alone Forms: ED Work / School Excuse Primary Care Provider: Hank Alvarado Referrals: Hank Alvarado DO [Primary Care Provider] - 5-7 Days Disposition Disposition: Home, Self Care Discharge Date/Time: 12/14/22 09:25
[2022-12-14] MEDS: HYDROcodone Bitartrate/Apap 5/325 Tablet PO (09:20)
--- NOTE | 2022-12-14 09:21 | ED.RN ---
ON ENTERING THE ROOM FOR DISCHARGE AND TO BE GIVEN PAIN MEDICATION, PATIENT STATES WHY NOT PERCOCET AND WHY NO STEROID, EXPLANATION GIVEN TO PATIENT REGARDING USAGE OF STEROIDS ALONG WITH THE MEDICATION BEING PRESCRIBED TODAY. THIS NURSE STATES I WILL CONSULT WITH THE DR REGARDING THE MEDICATIONS IF YOU WOULD PREFER. SHE STATES FOLLOWING THAT FUCK THAT, GIVE ME THE PILLS, I AM LEAVING SHE STANDS AT THE SIDE OF THE BED, ACCEPTS THE MEDICATION ORDERED AND GRABS HER PAPERWORK JUST PRIOR TO EXITIING THE ROOM. NO EDUCATION GIVEN PATIENT LEFT PRIOR TO THIS NURSE BEING ABLE TO GO OVER PAPERWORK.
== END 2022-12-14 09:25 | disposition home or self-care (01) ==
PROVIDERS: Emergency Provider Emergency Medicine; PCP Student in an Organized Health Care Education/Training Program; Visit Provider Emergency Medicine
DX: M54.50 Low back pain, unspecified (principal); F41.9 Anxiety disorder, unspecified; F17.210 Nicotine dependence, cigarettes, uncomplicated
CPT/HCPCS: 99283

== ENCOUNTER 2024-01-18 09:03 | Emergency (ER) | payer MEDICAID, SELFPAY ==
[2024-01-18 09:04] VITALS: BP 176/115; PULSE 98; RESP 18; TEMP 36.6; O2SAT 100; BMI 24.3
--- NOTE | 2024-01-18 09:14 | EKG12_ITS ---
Test Reason : SOB Blood Pressure : */* mmHG Vent. Rate : 83 BPM Atrial Rate : 83 BPM P-R Int : 124 ms QRS Dur : 92 ms QT Int : 384 ms P-R-T Axes : 59 57 51 degrees QTcB Int : 451 ms Normal sinus rhythm Normal ECG Confirmed by Kevin Chavarria ([id number]), electronic news gathering editor TERRIE YANEZ ([id number]) on 01/19/2024 6:00:59 AM Referred By: Confirmed By: Kevin Chavarria
--- NOTE | 2024-01-18 09:30 | RAD_ITS ---
EXAM: XR CHEST, 2 VIEWS CLINICAL INDICATION: chest pain TECHNIQUE: Frontal and lateral views of the chest. COMPARISON: XR Chest dated 12/12/2020 FINDINGS: LUNGS AND PLEURAL SPACES: Stable postoperative changes at both lung apices. Lungs are otherwise clear. No pleural effusion or pneumothorax. HEART: Normal heart size. MEDIASTINUM: No mediastinal or hilar mass. BONES/JOINTS: No acute abnormality. RAD/Chest PA and Lateral IMPRESSION: No acute cardiopulmonary abnormality. No interval change. Electronically Signed: Jaime Corcoran MD at 9:47 EST ,
[2024-01-18 09:34] LABS: Absolute Lymphocyte Count 1.45 X10^3/uL (0.83-4.51); Absolute Neutrophil Count 2.8 X10^3/uL (2.0-7.7); Basophil# 0.02 X10^3/uL; Basophil% 0.4 % (0-1); Eosinophils% 2.1 % (0-5); Hematocrit 35.8 % (37-47); Hemoglobin 11.4 g/dL (12.0-15.0); Lymphocyte # 1.45 X10^3/ul (0.83-4.51); Lymphocyte % 30.6 % (19-41); Mean Corp Hgb Conc 31.8 g/dL (32-36); Mean Corpuscular Hgb 30.8 pg (27.0-32.0); Mean Corpuscular Volume 96.8 fL (81-99); Mean Platelet Vol. 8.9 fl (6.2-12.0); Monocyte# 0.37 X10^3/uL; Monocyte% 7.8 % (0-10); NRBC Flagged by Analyzer 0 % (0-5); Neutrophil # 2.79 X10^3/uL (2.7-7.7); Neutrophil % 58.9 % (47-70); Platelet Count 307 K/mm3 (150-450); RBC Distribution Width CV 13.3 % (11.6-14.6); RBC Distribution Width SD 47.4 fl (35.1-43.9); White Blood Count 4.7 K/mm3 (4.4-11.0)
--- NOTE | 2024-01-18 09:36 | ED.VIS.CHEST ---
HPI History of Present Illness Chief Complaint: Chest Pain Informant: patient Narrative Narrative: Patient is a 53-year-old female with history of anxiety, depression (on Prozac), tobacco use presenting with chest pressure. Patient states it started yesterday but is intermittent. It last for couple minutes at a time. She thought it was her anxiety but took her Prozac with no improvement of her symptoms. She states is more of a pressure diffusely through the front of her chest. Does not radiate. Patient denies any current shortness of breath but states sometimes she feels short of breath. She denies any swelling of her legs, history of DVT or PE. Denies any recent travel. Denies any new stressors or activities. Denies any recent cough but does report some mild nasal congestion. No report of any fevers or chills. No GI or symptoms reported. No other complaints or concerns reported at this time. [facility] Medical History (Updated 01/18/24 @ 12:[address] Trini Tai DO) Infected sebaceous cyst of skin Skin lesion of face Anxiety Depression Home Medications ?Medication ?Instructions ?Recorded ?Last Taken ?Type prednisone 20 mg tablet 20 mg PO DAILY #5 tabs 11/26/22 Unknown Rx hydrocodone-acetaminophen 5-325mg 1 tab PO Q6H PRN PRN Pain 3 days 12/14/22 Unknown Rx 5mg-325mg #10 TABLETS hydroxyzine HCl 25 mg tablet 25 mg PO TID PRN anxiety #20 tabs 01/18/24 Unknown Rx Allergy/AdvReac Type Severity Reaction Status Date / Time No Known Allergies Allergy Verified 01/18/24 09:07 Family History Mother Lung cancer Liver cancer Surgical History History of surgical removal of skin lesion Hx of hernia repair Hx of tubal ligation Social History Smoking Status: Current every day smoker tobacco type: cigarettes substance use type: does not use ROS ROS ED Constitutional Constitutional ED: Denies chills or fever(s) Cardiovascular Cardiovascular: Reports as per HPI and chest pain; Denies palpitations or racing heartbeat Respiratory/Chest Respiratory/Chest: Denies cough, dyspnea or dyspnea on exertion Gastrointestinal Gastrointestinal: Denies abdominal pain, nausea or vomiting Musculoskeletal Musculoskeletal: Denies arthralgias or myalgias Integumentary Denies rash Neurologic Neurologic: Denies weakness Psychiatric Psychiatric: Reports anxiety; Denies depression Hematologic/Lymphatic Hematologic/Lymphatic: Denies easy bleeding or easy bruising EXAM Physical Exam Const Vital Signs: 01/18/24 09:04 01/18/24 10:08 01/18/24 10:08 Temperature 98 F Temperature Source Oral Pulse Rate 98 91 Respiratory Rate 18 21 H Blood Pressure 176/115 H 118/75 Blood Pressure Mean 135 89 Pulse Ox 100 100 Oxygen Delivery Method Room Air Room Air 01/18/24 11:23 Temperature Temperature Source Pulse Rate 78 Respiratory Rate 14 Blood Pressure 118/75 Blood Pressure Mean 89 Pulse Ox 100 Oxygen Delivery Method Positive well nourished and well developed General Appearance ED: well developed and NAD HEENT Reports moist mucous membranes Eyes PERRL Neck supple Chest Wall inspection of chest normal and palpation of chest normal Chest Narrative: Patient reports mild discomfort with palpation of the from her chest. Resp normal respiratory effort and clear to auscultation bilaterally Cardio regular rate and regular rhythm GI normal to inspection, nondistended, normoactive bowel sounds, soft to palpation and non-tender Extremity normal to inspection General Extremety ED: Negative for edema General Extremity: Negative for edema Neuro oriented x3 Sensorium / Orientation: awake and alert Motor Exam: Negative for general weakness Psych mental status grossly normal Mood & Affect: anxious Skin no rashes or lesions noted and no wounds Heart Score History: Slightly/Non-Suspicious ECG: Normal Age: >45 - <65 years Risk Factors: 1 or 2 Risk Factors Troponin: </= Normal Limit Score: 2 MDM MDM MDM Narrative Medical decision making narrative: Patient evaluated for chest pressure. Is been intermittent since yesterday but cannot give me a definitive timeline. She attributes it more to her anxiety but wanted to be evaluated further. Initial blood pressure is elevated 176/115 however when I first saw her her blood pressure was down to 126/67 without any intervention. Differential includes ACS, pneumonia, anxiety reaction, arrhythmia, symptomatic anemia, pericarditis and myocarditis. Patient's workup largely negative. She is mildly chronic appearing anemia the hemoglobin 11.4. High sensitive troponin is normal x 2. Chest x-ray viewed by myself as well as radiology does not show any acute process. Patient is completely asymptomatic while in the emergency room and sleeping throughout her stay. She states she is just been very tired. Blood pressure normalizes and stays normal in the emergency room with normal vital signs. She is not complaining of any pleuritic pain, shortness of breath, leg swelling or other risk factors for DVT/PE I do not think workup for that including a D-dimer is indicated at this time. Patient be discharged home with encouragement to follow-up with her primary care doctor. Will give her a prescription for hydroxyzine in case her pain was more anxiety related. She verbalized agreement understand this plan. Discharged home in stable condition. Is given a work note for today. Lab Data Attestation: I reviewed the patient's lab results. Labs: Laboratory Results - last 24 hr 01/18/24 01/18/24 09:23 11:22 WBC 4.7 RBC 3.70 L Hgb 11.4 L Hct 35.8 L MCV 96.8 MCH 30.8 MCHC 31.8 L RDW Std Deviation 47.4 H RDW Coeff of Melisa 13.3 Plt Count 307 MPV 8.9 Immature Gran % (Auto) 0.200 Neut % (Auto) 58.9 Lymph % (Auto) 30.6 [place] % (Auto) 7.8 Eos % (Auto) 2.1 Baso % (Auto) 0.4 Absolute Neuts (auto) 2.8 Absolute Lymphs (auto) 1.45 Nucleated RBC % 0 Sodium 139 Potassium 3.8 Chloride 105 Carbon Dioxide 29.0 Anion Gap 5 BUN 14 Creatinine 0.61 Estim Creat Clear Calc 89.26 Est GFR (MDRD) Af Amer 131 Est GFR (MDRD) Non-Af 108 BUN/Creatinine Ratio 23.0 H Glucose 109 H Calcium 9.0 Total Bilirubin 0.10 L AST 10 L ALT 20 Alkaline Phosphatase 93 Troponin I High Sens 4 3 Total Protein 7.2 Albumin 3.7 Globulin 3.5 Albumin/Globulin Ratio 1.1 Radiography Chest X-Ray - ED: 2 View, Read by ED Physician, Read by Radiologist and No Acute Disease Diagnostic Testing: Clinical Impression(s) from Imaging Studies Chest X-Ray 01/18/24 09:30 IMPRESSION: No acute cardiopulmonary abnormality. No interval change. Electronically Signed: Jaime Corcoran MD at 9:47 EST , Rhythm Strip Rhythm Strip: Sinus Rhythm Rate: 83 Ectopy: None EKG Initial EKG: Attestation: I personally reviewed and interpreted this EKG as follows: Interpretation: Sinus Rhythm Comments: Normal sinus rhythm rate of 83 bpm Normal axis Normal intervals Normal ST segments Discharge Plan Triage Chief Complaint: Chest Pain ED Provider: Trini Tai Dx/Rx/DC Orders Clinical Impression: Chest pain of uncertain etiology Instructions: ED Chest Pain, Uncertain Cause Prescriptions: New hydroxyzine HCl 25 mg tablet 25 mg PO TID PRN (Reason: anxiety) Qty: 20 0RF No Action prednisone 20 mg tablet 20 mg PO DAILY Qty: 5 0RF hydrocodone-acetaminophen [hydrocodone-acetaminophen] 5-325 mg tablet 1 tab PO Q6H PRN PRN (Reason: Pain) 3 Days Qty: 10 0RF Stand Alone Forms: Work / School Excuse Primary Care Provider: Hank Alvarado Referrals: Hank Alvarado DO [Primary Care Provider] - Activity Restrictions/Additional Instructions: Your cardiac workup was very reassuring today and normal. The exact cause of your symptoms is not clear. It is possible this could be anxiety reaction. Please follow-up with your primary care doctor for further outpatient evaluation. Print Language: [place]raini Disposition Disposition: Home, Self Care
[2024-01-18 09:57] LABS: ALB/GLOB Ratio 1.1 RATIO (0.9-2.4); AST(SGOT) 10 U/L (15-37); Alanine Aminotransfer ALT/SGPT 20 U/L (13-56); Albumin, Serum 3.7 g/dL (3.2-5.0); Alkaline Phosphatase 93 U/L (45-117); Anion Gap 5 (5-15); BUN 14 mg/dL (7-18); Chloride 105 mmol/L (98-107); Creatinine, Serum 0.61 mg/dL (0.55-1.02); EST Glomerular Filtration Rate 108 mL/min (>60); Est Glom Filt Rate - Afr Amer 131 mL/min (>60); Estimated Creatinine Clearance 89.26 ml/min; Globulin 3.5 g/dL (2.2-4.2); Glucose 109 mg/dL (74-106); Potassium 3.8 mmol/L (3.5-5.1); Protein, Total 7.2 g/dL (6.4-8.2); Sodium Level 139 mmol/L (136-145); Troponin-I HS 4 pg/mL (3.0-54.0)
[2024-01-18] MEDS: Aspirin 81 MG TAB.CHEW 324 MG PO (10:06)
[2024-01-18 10:08] VITALS: BP 118/75; PULSE 91; RESP 21; O2SAT 100
[2024-01-18 11:23] VITALS: BP 118/75; PULSE 78; RESP 14; O2SAT 100
[2024-01-18 11:44] LABS: Troponin-I HS 3 pg/mL (3.0-54.0)
[2024-01-18 12:34] VITALS: PULSE 80; RESP 16; O2SAT 97
== END 2024-01-18 12:35 | disposition home or self-care (01) ==
PROVIDERS: Emergency Provider Emergency Medicine; PCP Student in an Organized Health Care Education/Training Program; Visit Provider Emergency Medicine
DX: R07.89 Other chest pain (principal); F17.210 Nicotine dependence, cigarettes, uncomplicated
CPT/HCPCS: 71046; 80053; 84484; 85025; 93005; 99284; A4216

== ENCOUNTER 2024-02-03 07:08 | Emergency (ER) | payer MEDICAID, SELFPAY ==
[2024-02-03 07:09] VITALS: BP 110/66; PULSE 104; RESP 14; TEMP 36.1; O2SAT 96; BMI 19.8
--- NOTE | 2024-02-03 07:25 | EDS_ITS ---
HPI History of Present Illness Chief Complaint: Back Detail of Chief Complaint: Back pain/sciatica Informant: patient Narrative Narrative: Patient presents to the emergency department complaint of back pain and sciatica like symptoms which she has had before. She woke up this morning with severe pain in her left low back and down her left leg. She has had similar episodes in the past. She had some mild discomfort similarly about a week ago that then got better. Patient does not do any heavy lifting and denies any injury to her back. She has had no falls or trauma. Years ago she had history of sciatica similarly. She denies weakness to the extremity or change in bowel or bladder function. Patient denies urinary symptoms. [facility] Medical History (Updated 02/03/24 @ 07:[address] Vasu Hudson DO) Infected sebaceous cyst of skin Skin lesion of face Anxiety Depression Home Medications ?Medication ?Instructions ?Recorded ?Last Taken ?Type prednisone 20 mg tablet 20 mg PO DAILY #5 tabs 11/26/22 Unknown Rx hydrocodone-acetaminophen 5-325mg 1 tab PO Q6H PRN PRN Pain 3 days 12/14/22 Unkn own Rx 5mg-325mg #10 TABLETS hydroxyzine HCl 25 mg tablet 25 mg PO TID PRN anxiety #20 tabs 01/18/24 Unknown Rx cyclobenzaprine 10 mg tablet 10 mg PO TID PRN Muscle Spasm #20 02/03/24 Unknown Rx TABLETS hydrocodone-acetaminophen 5-325mg 1 tab PO Q4H PRN PRN Pain 2 days 02/03/24 Unknown Rx 5mg-325mg #10 TABLETS methylprednisolone 4 mg tablets in See Rx Instructions PO .COMPLEX 02/03/24 Unknown Rx a dose pack (Medrol ([place]on)) #21 tabs Allergy/AdvReac Type Severity Reaction Status Date / Time No Known Allergies Allergy Verified 01/18/24 09:07 Family History Mother Lung cancer Liver cancer Surgical History History of surgical removal of skin lesion Hx of hernia repair Hx of tubal ligation Social History Smoking Status: Current every day smoker tobacco type: cigarettes substance use type: does not use ROS ROS ED Review of Systems ROS Unobtainable: other Constitutional Constitutional ED: Reports lethargy; Denies chills, fever(s), sweats or weight loss Eyes Eyes: Denies blurry vision, change in vision or diplopia ENT ENT ED: Denies rhinorrhea or sore throat Cardiovascular Cardiovascular: Denies chest pain, orthopnea or racing heartbeat Respiratory/Chest Respiratory/Chest: Denies cough, dyspnea, dyspnea on exertion, orthopnea or sputum Gastrointestinal Gastrointestinal: Denies abdominal pain, diarrhea, nausea or vomiting Genitourinary Genitourinary ED: Denies dysuria, hematuria or urinary frequency Musculoskeletal Musculoskeletal: Reports back pain; Denies arthralgias, myalgias or neck pain Integumentary Denies abscess, Abrasions or rash Neurologic Neurologic: Denies headache(s) or weakness Psychiatric Psychiatric: Denies anxiety, depression or suicidal thoughts Endocrine Endocrinology: Denies polydipsia, polyphagia or polyuria Hematologic/Lymphatic Hematologic/Lymphatic: Denies easy bleeding, easy bruising or lymphadenopathy Allergic/Immunologic Allergic/Immunologic ED: Denies mouth swelling, tongue swelling or urticaria EXAM Physical Exam Const Vital Signs: 02/03/24 07:09 Temperature 97 F L Temperature Source Temporal Pulse Rate 104 H Respiratory Rate 14 Blood Pressure 110/66 Blood Pressure Mean 80 Pulse Ox 96 Oxygen Delivery Method Room Air Positive well nourished and well developed General Appearance ED: well developed and NAD HEENT Reports TM's clear and moist mucous membranes normocephalic and atraumatic; Negative for trauma or tenderness Tympanic Membrane ED: Yes TM's clear Eyes PERRL and EOMs intact bilaterally General Eye ED: Negative for pale conjunctiva or scleral icterus Neck no lymphadenopathy, supple and no JVD General: Negative for tenderness Chest Wall inspection of chest normal and palpation of chest normal Chest: Negative for tenderness Resp normal respiratory effort and clear to auscultation bilaterally Effort and Inspection: Negative for respiratory distress or pain with movement Auscultation: Negative for rhonchi, wheezes or diminished lung sounds Cardio regular rate, regular rhythm, S1 normal heart sound, S2 normal heart sound and no murmurs Peripheral Pulses: pulses 2+ throughout GI normal to inspection, nondistended, normoactive bowel sounds, soft to palpation, non-tender, non-distended and no masses Back/Spine Back/Spine Narrative: No tenderness palpation over thoracic or lumbar spine. Cannot reproduce her pain with palpation. She has negative straight leg raises bilaterally. Deep tendon reflexes plus 2 out of 4 bilaterally at the patella and Achilles. She has normal L5 extension bilaterally. She has normal sensation to light touch. Extremity normal to inspection General Extremety ED: Negative for edema General Extremity: Negative for edema Neuro oriented x3, CN's II-XII intact bilaterally, no sensory deficits noted and gait normal Sensorium / Orientation: awake, alert, oriented to person, oriented to place and oriented to time Motor Exam: strength 5/5 throughout and strength abnormal Psych mental status grossly normal Skin no rashes or lesions noted and no wounds MDM MDM MDM Narrative Medical decision making narrative: Patient presents with back pain similar to prior sciatica episodes. She describes pain radiating down her left leg but no weakness in the extremity. Denies paresthesias. No red flag symptoms of cauda equina. At this point she is driving therefore cannot medicate her in the emergency department which I did explain to her and she understands. I will start her on a Medrol Dosepak and give her a prescription for Flexeril and a few [place] for pain. Advised to follow-up with primary care physician within next 5 to 7 days. Will write her off work for today. Patient does not want work restrictions as she does no lifting at work. Discharge Plan Triage Chief Complaint: Back ED Provider: Vasu Hudson Dx/Rx/DC Orders Clinical Impression: Back pain, Sciatica Instructions: ED Sciatica Prescriptions: New cyclobenzaprine 10 mg tablet 10 mg PO TID PRN (Reason: Muscle Spasm) Qty: 20 0RF hydrocodone-acetaminophen 5-325 mg tablet 1 tab PO Q4H PRN PRN (Reason: Pain) 2 Days Qty: 10 0RF methylprednisolone [Medrol (Davon)] 4 mg tablets,dose pack See Rx Instructions .ROUTE .COMPLEX Qty: 21 0RF Rx Instructions: orally per package directions No Action prednisone 20 mg tablet 20 mg PO DAILY Qty: 5 0RF hydrocodone-acetaminophen [hydrocodone-acetaminophen] 5-325 mg tablet 1 tab PO Q6H PRN PRN (Reason: Pain) 3 Days Qty: 10 0RF hydroxyzine HCl 25 mg tablet 25 mg PO TID PRN (Reason: anxiety) Qty: 20 0RF Primary Care Provider: Hank Alvarado Referrals: Hank Alvarado DO [Primary Care Provider] - 5-7 Days Print Language: [place] Irish Disposition Disposition: Home, Self Care
== END 2024-02-03 07:43 | disposition home or self-care (01) ==
LOC: ED 07:37
PROVIDERS: Emergency Provider Emergency Medicine; PCP Student in an Organized Health Care Education/Training Program; Visit Provider Emergency Medicine
DX: M54.30 Sciatica, unspecified side (principal); F17.210 Nicotine dependence, cigarettes, uncomplicated
CPT/HCPCS: 99282